=== PATIENT | female | born 1955 | race Caucasian/White ===

== ENCOUNTER 2021-03-01 22:03 | Inpatient (IN) | payer MEDICARE ==
[2021-03-01] MEDS ORDERED: SODIUM CHLORIDE 0.9% 500 ML 500 ML IV STA (22:25)
--- NOTE | 2021-03-01 22:28 | ED ---
Neuro HPI - General Chief Complaint: Neuro Symptoms/Deficit Stated Complaint: L sided weakness Time Seen by Provider: 03/01/21 22:08 Source: patient, EMS Mode of arrival: EMS Limitations: no limitations - History of Present Illness Is the patient presenting with stroke symptoms?: Yes Last Known Well Date: 02/25/21 Onset/Timin -: days(s) Initial Comments: This patient is 65-year-old woman who presents with complaint that she is feeling weak on her left side going on for approximately 4 days now. The patient states that this is led to her having a number of falls at home. She is not complaining of any injury related to the falls. She has noted also having sinus symptoms including congestion, some nasal discharge and a cough. She has not noted fever or chills. No chest pain or dyspnea. Location: left arm, left leg History of same: No Place: home Severity: moderate Quality: weak Improves With: none Worsens With: none On Anticoagulants: No Context: sudden onset, recent fall Associated Symptoms: cough Treatments Prior to Arrival: none - Related Data Allergies/Adverse Reactions: Allergies Allergy/AdvReac Type Severity Reaction Status Date / Time Sulfa (Sulfonamide Allergy Anaphylaxis Verified 03/01/21 22:16 Antibiotics) Review of Systems ROS Statement: Those systems with pertinent positive or pertinent negative responses have been documented in the HPI. ROS Other: All systems not noted in ROS Statement are negative. Constitutional: Denies: fever, chills ENT: Reports: congestion. Denies: throat pain Respiratory: Reports: cough. Denies: dyspnea, wheezes, hemoptysis Cardiovascular: Denies: chest pain, palpitations, edema Gastrointestinal: Denies: abdominal pain, nausea, vomiting, diarrhea Genitourinary: Denies: dysuria, hematuria Musculoskeletal: Denies: back pain Skin: Denies: rash Neurological: Reports: weakness, abnormal gait. Denies: headache, numbness, paresthesias, confusion General Exam Limitations: no limitations General appearance: alert, in no apparent distress Head exam: Present: atraumatic, normocephalic Eye exam: Present: normal appearance. Absent: scleral icterus, conjunctival injection ENT exam: Present: mucous membranes dry Respiratory exam: Present: normal lung sounds bilaterally. Absent: respiratory distress, wheezes, rales, rhonchi, stridor Cardiovascular Exam: Present: regular rate, normal rhythm, normal heart sounds. Absent: systolic murmur, diastolic murmur, rubs, gallop GI/Abdominal exam: Present: soft. Absent: distended, tenderness, guarding, rebound, rigid, mass Extremities exam: Present: normal inspection, normal capillary refill. Absent: pedal edema, calf tenderness Back exam: Present: normal inspection. Absent: CVA tenderness (R), CVA tenderness (L) Neurological exam: Present: alert, oriented X3, motor sensory deficit. Absent: CN II-XII intact Expanded Patient oriented to: Present: person, place, time Speech: Present: fluid speech Cranial nerves: EOM's Intact: Normal Motor strength exam: RUE: 5, LUE: 4, RLE: 5, LLE: 4 Eye Response: (4) open spontaneously Motor Response: (6) obeys commands Verbal Response: (5) oriented Skin exam: Present: warm, dry, intact, normal color. Absent: rash Stroke MDM - Lab Data Result diagrams: 03/01/21 22:28 03/01/21 22:28 Lab Results 03/01/21 03/01/21 03/01/21 Range/Units 22:28 22:28 22:28 WBC 4.1 (3.8-10.6) k/uL RBC 4.71 (3.80-5.40) m/uL Hgb 13.6 (11.4-16.0) gm/dL Hct 41.1 (34.0-46.0) % MCV 87.1 (80.0-100.0) fL MCH 28.9 (25.0-35.0) pg MCHC 33.2 (31.0-37.0) g/dL RDW 12.6 (11.5-15.5) % Plt Count 114 L (150-450) k/uL MPV 8.6 Neutrophils % 77 % Lymphocytes % 15 % Monocytes % 6 % Eosinophils % 1 % Basophils % 0 % Neutrophils # 3.2 (1.3-7.7) k/uL Lymphocytes # 0.6 L (1.0-4.8) k/uL Monocytes # 0.2 (0-1.0) k/uL Eosinophils # 0.0 (0-0.7) k/uL Basophils # 0.0 (0-0.2) k/uL PT 10.3 (9.0-12.0) sec INR 1.0 (<1.2) APTT 24.5 (22.0-30.0) sec Sodium 132 L (137-145) mmol/L Potassium 3.7 (3.5-5.1) mmol/L Chloride 99 (98-107) mmol/L Carbon Dioxide 23 (22-30) mmol/L Anion Gap 10 mmol/L BUN 29 H (7-17) mg/dL Creatinine 1.11 H (0.52-1.04) mg/dL Est GFR (CKD-EPI)AfAm 61 (>60 ml/min/1.73 sqM) Est GFR (CKD-EPI)NonAf 53 (>60 ml/min/1.73 sqM) Glucose 231 H (74-99) mg/dL Calcium 8.5 (8.4-10.2) mg/dL Total Bilirubin 1.1 (0.2-1.3) mg/dL AST 33 (14-36) U/L ALT 21 (4-34) U/L Alkaline Phosphatase 112 (38-126) U/L Total Protein 7.2 (6.3-8.2) g/dL Albumin 3.9 (3.5-5.0) g/dL - EKG Data -: EKG Interpreted by Nd EKG shows normal: sinus rhythm, axis, intervals (Normal), QRS complexes (Old inferior infarct) Rate: normal (Rate 77 bpm) Interpretation: LVH Past Medical History Past Medical History: Hypertension, Myocardial Infarction ([place]) Additional Past Medical History / Comment(s): 2004 cardiac arrest, 5 [place] with stent placement History of Any Multi-Drug Resistant Organisms: None Reported Past Surgical History: Appendectomy, Tubal Ligation Smoking Status: Never smoker Past Alcohol Use History: None Reported Past Drug Use History: None Reported Course Vital Signs 03/01/21 22:12 Temperature 98.5 F Pulse Rate 80 Respiratory 18 Rate Blood Pressure 117/79 O2 Sat by Pulse 93 L Oximetry Disposition Referrals: Nonstaff,Physician [Primary Care Provider] - 1-2 days
[2021-03-01 22:35] LABS: Basophils % (A) 0 %; Eosinophils % (A) 1 %; HCT 41.1 % (34.0-46.0); HGB 13.6 gm/dL (11.4-16.0); Lymphocytes # (A) 0.6 k/uL (1.0-4.8); Lymphocytes % (A) 15 %; MCH 28.9 pg (25.0-35.0); MCHC 33.2 g/dL (31.0-37.0); MCV 87.1 fL (80.0-100.0); Mean Platelet Volume 8.6; Monocytes # (A) 0.2 k/uL (0-1.0); Monocytes % (A) 6 %; Neutrophils # (A) 3.2 k/uL (1.3-7.7); Neutrophils % (A) 77 %; Platelet Count 114 k/uL (150-450); RBC 4.71 m/uL (3.80-5.40); RDW 12.6 % (11.5-15.5); WBC 4.1 k/uL (3.8-10.6)
[2021-03-01 22:49] LABS: Albumin 3.9 g/dL (3.5-5.0); Calcium 8.5 mg/dL (8.4-10.2); Partial Thromboplastin Time 24.5 sec (22.0-30.0); Potassium 3.7 mmol/L (3.5-5.1); Prothrombin Time 10.3 sec (9.0-12.0); Total Bilirubin 1.1 mg/dL (0.2-1.3); Total Protein 7.2 g/dL (6.3-8.2)
--- NOTE | 2021-03-01 23:08 | XR ---
EXAMINATION TYPE: XR chest 2V DATE OF EXAM: 03/01/2021 COMPARISON: NONE HISTORY: Altered mental status TECHNIQUE: 2 view FINDINGS: Heart and mediastinum appear normal. Lungs are clear of infiltrate. There is no heart failu re. There is minimal pleural thickening at the lung apices. There are chest leads. Bony thorax is int act. IMPRESSION: No active cardiopulmonary disease. Normal heart.
--- NOTE | 2021-03-01 23:17 | CT ---
EXAMINATION TYPE: CT brain wo con for TPA DATE OF EXAM: 03/01/2021 COMPARISON: None HISTORY: left side weakness CT DLP: 1171 mGycm Automated exposure control for dose reduction was used. Images obtained of the brain without contrast. There is some hyperostosis frontalis. Ventricles have normal size. There is no mass effect or midline shift. There is no evidence of intracranial hemorrhage. There is normal aeration of the mastoid sinu ses. There is a subtle 1.5 cm area of hypodensity in the white matter right parietal lobe. IMPRESSION: Focal hypodensity right parietal lobe could relate to lacunar infarct. No hemorrhage.
--- NOTE | 2021-03-01 23:33 | CT ---
EXAMINATION TYPE: CT angio head neck DATE OF EXAM: 03/01/2021 COMPARISON: None HISTORY: left side weakness CT DLP: 633.7 mGycm Automated exposure control for dose reduction was used. CONTRAST: Performed with IV Contrast, patient injected with 65 mL of Isovue 370. Images obtained from the aortic arch to the vertex of the brain with IV contrast. There are Three-D p ostprocessed images. There is normal branching pattern of the great vessels on the aortic arch. There is bilateral arteria l flow in the subclavian arteries. There is arterial flow in the common internal and external carotid arteries bilaterally. There is arterial flow in both vertebral arteries. There is arterial flow in t he vertebrobasilar artery system. There is extensive plaque formation at the carotid artery bifurcati ons. There is estimated 50% stenosis origin of the right internal carotid artery. There is estimated 70% stenosis origin left internal carotid artery with complex plaque. There is arterial flow in the anterior middle and posterior cerebral arteries bilaterally. There is n ormal contrast opacification of the venous sinuses. There is no mass effect. There is no evidence of intracranial aneurysm or neovascularity. There appears to be significant luminal narrowing of the rig ht middle cerebral artery proximal to the bifurcation. There is probably more than 70% stenosis. No s ignificant stenosis seen in the anterior cerebral arteries. There is some subtle hypodensity in the w sara matter right parietal lobe. IMPRESSION: Bilateral plaque formation at the carotid artery bifurcations with approximate 50% stenosis right int ernal carotid artery and 70% stenosis left internal carotid artery. There is some stenosis of the right middle cerebral artery approximate 70%. Hypodensity right parieta l lobe white matter suggestive of infarct.
[2021-03-01] MEDS ORDERED: INSULIN NPH 300 UNIT/3 ML VIAL SQ STA (23:47)
[2021-03-01] MEDS ORDERED: ASPIRIN 325 MG TAB PO STA (23:48)
[2021-03-02] MEDS: SODIUM CHLORIDE 0.9% 1,000 ML IV SCH ×3 (00:34→20:15)
[2021-03-02] MEDS: DOCUSATE 100 MG CAP PO SCH ×3 (03:58→18:05)
[2021-03-02 04:03] LABS: Glucose,Whole Blood 159 mg/dL (75-99)
[2021-03-02] MEDS: FAMOTIDINE 20 MG TAB PO SCH ×2 (08:15→20:14)
[2021-03-02] MEDS: ASPIRIN 325 MG TAB PO SCH (08:15)
[2021-03-02] MEDS: HEPARIN SODIUM,PORCINE/PF 5,000 UNIT/0.5 ML SYRINGE SQ SCH ×2 (08:18→20:17)
[2021-03-02 09:45] LABS: LDL Cholesterol,Calculated 50.9 mg/dL (0.0-131.0)
[2021-03-02] MEDS ORDERED: CLOPIDOGREL 75 MG TAB PO STA (10:38)
--- NOTE | 2021-03-02 10:59 | P.CNNES ---
History of Present Illness Consult date: 03/02/21 Requesting physician: Michael Chávez Reason for Consult: Acute ischemic stroke History of Present Illness: Patient is a 65-year-old right-handed female came to the hospital by ambulance yesterday at 11:03 PM for left-sided weakness. patient states that she started having some sinus pressure stating on 02/23/2021. She had intense sinus pressure behind the eyes, cheek. She felt her face was swollen. On 02/27/2021 she woke up with left-sided weakness. She started falling down. She couldn't get out of the bedroom. She missed the bed and fell on the floor. She fell on the toilet, felt weak on the left side. Patient thought that it was just her antihistamine, NyQuil producing the symptoms. She denied any slurred speech, facial droop. Denied any numbness of left side of the body. As the s ymptoms persisted, she decided to come to the ER. As per EMS flow sheet, they came to see the patient because she was not feeling well for the previous couple days. When they arrived, patient was sitting on her bed, alert and oriented 4 with left-sided weakness and facial droop. Patient has extensive cardiac history. Patient denied any chest pain, shortness of breath or dizziness. She was having difficulty with walking, leaning to the left and drifting that way. Patient stood with assistance and sat on the stretcher. Patient has pronounced left-sided weakness. The symptoms have been present since 8 AM earlier in the morning. Patient's vital signs shows blood pressure 126/73, pulse of 81 respirations 16 and saturation 95%, blood glucose 253. Temperature 97.2. Computed tomography scan of the head showed focal hypodensity right parietal lobe could be related to lacunar infarct. No hemorrhage. I reviewed the computed tomography scan personally, and appears somewhat probable chronic in nature. It involves the subcortical right parietal region. CTA of head and neck showed bilateral plaque formation at the carotid bifurcation with approximately 50% stenosis right ICA and 70% stenosis left ICA. There is some stenosis of the right middle cerebral artery approximately 70%. Hypodensity right parietal lobe white matter suggestive of infarct. EKG shows normal sinus rhythm, left ventricular hypertrophy with repolarization abnormality. Chest x-ray showed no active cardiopulmonary disease. Normal heart. Blood test shows normal CBC PT/PTT, sodium 132 potassium 3.7, BUN is 29, creatinine 1.11. Hepatic panel is normal, troponin negative. Patient currently takes Lipitor 80 mg, Zetia 10 mg, losartan 50 mg, metoprolol 100 mg.patient states that she takes aspirin 81 mg daily, which she is still taking it. She also has been taking Plavix 75 mg daily, but she ran out of it 2 weeks ago, as she has not got her refill of Plavix yet. Patient states that she has history of hypertension, [place] in 2003 after which she started taking all these medications. She has smoked 1 pack per day for 20 years, quit 2003. Denies diabetes. Patient states that she is not vaccinated for coronavirus. She is not intending to get vaccinated. She does not believe in it. I discussed with her to get tested for Covid-19 (given her recent sinus congestion and sinus pressures), but she completely declined, stating that coronavirus is everywhere, even the water. Review of Systems as mentioned in detail in HPI. All other 14 point of review of systems reviewed and unremarkable. Denies any chest pain, denies any double vision, loss of vision. No fever or chills. Past Medical History Past Medical History: Hypertension, Myocardial Infarction ([place]) Additional Past Medical History / Comment(s): 2003 cardiac arrest, 5 [place] with stent placement History of Any Multi-Drug Resistant Organisms: None Reported Past Surgical History: Appendectomy, Tubal Ligation Smoking Status: Never smoker Past Alcohol Use History: None Reported Past Drug Use History: None Reported Medications and Allergies Home Medications Medication Instructions Recorded Confirmed Type Amoxic-Pot Clav 875-125Mg 1 tab PO Q12HR 03/01/21 03/01/21 History [Augmentin 875-125] Atorvastatin [Lipitor] 80 mg PO HS 03/01/21 03/01/21 History Ezetimibe [Zetia] 10 mg PO HS 03/01/21 03/01/21 History Losartan Potassium 50 mg PO HS 03/01/21 03/01/21 History Metoprolol Succinate (ER) [Toprol 100 mg PO HS 03/01/21 03/01/21 History Xl] diphenhydrAMINE [Benadryl] 25 mg PO HS 03/01/21 03/01/21 History Allergies Allergy/AdvReac Type Severity Reaction Status Date / Time Sulfa (Sulfonamide Allergy Anaphylaxis Verified 03/02/21 16:07 Antibiotics) Physical Examination - Vital Signs Vital Signs: Vital Signs Temp Pulse Resp BP Pulse Ox 03/02/21 06:51 80 18 131/75 94 L 03/01/21 22:12 98.5 F 80 18 117/79 93 L Intake and Output 03/01/21 03/02/21 03/02/21 22:59 06:59 14:59 Other: Weight 113.398 kg Patient is an elderly female, in no acute distress. Patient is alert awake oriented to time place and person. Speech is mildly hoarse, but no aphasia or dysarthria. Attention, concentration and fund of knowledge is adequate. On cranial examination, pupils are round and reacting to light, visual goldberg are full on confrontation, extraocular muscles are intact with no nystagmus. Patient has slight left facial weakness, central type. Her tongue protrudes to the midline. Palatal elevation and sensation normal, hearing and shoulder shrug normal, facial sensation normal. Shoulder shrug normal. On muscle strength testing, there is left pronator drift, but does not hit the bed. The muscle strength is (RIGHT/LEFT), deltoid 5/3+, biceps 5/5-4+, triceps 5/4+, rn hematology 5/5-. In the lower limbs, her both hip flexures are weak, but left is weaker. Right has some resistance against gravity but the left falls right away. Ankles are normal bilaterally. Deep tendon reflexes are overall diminished, but plantar is downgoing on the right, up on the left side. Sensory to touch is equal with no neglect. Cerebellar function showed ataxia for [id number], and [id number] testing only on the left side. Tone is slightly decreased on the left side and bulk of muscles normal. Gait deferred. On general examination, there is no carotid bruit or murmur, S1-S2 audible. Abdomen is soft nontender, normal bowel sounds, no organomegaly. Chest is c lear. Peripheral pulses are present. No edema. Results - Laboratory Findings CBC and BMP: 03/04/21 08:05 03/04/21 08:05 Abnormal Lab Findings: Abnormal Labs 03/01/21 03/01/21 03/02/21 22:28 22:28 03:54 Plt Count 114 L Lymphocytes # 0.6 L Sodium 132 L BUN 29 H Creatinine 1.11 H Glucose 231 H POC Glucose (mg/dL) 159 H Assessment and Plan Assessment: * Acute ischemic stroke with left hemiparesis. Patient's symptoms have been present for 48 hours prior to arrival. Patient was not a candidate for TPA. Her NIH stroke scale is 5 ( MILD LEFT HEMIPARESIS AND LEFT SIDED ATAXIA) * bilateral carotid artery disease, 70% of the left (asymptomatic side), 50% on the right (symptomatic side). * Hypertension * Hyperlipidemia * Coronary artery disease * X tobacco use * Obesity Plan: * Patient used to be on dual antiplatelet medication since her [place] in 2003. She has ran out of Plavix 2 weeks ago. Patient will be resumed on dual antiplatelet medications. * We will check MRI of the brain to evaluate for an acute stroke * 2-D echo with bubble study to rule out PFO * Lipid panel, hemoglobin A1c, continue statins * Telemetry monitoring * Vascular surgery on board for left ICA stenosis. * PT OT, evaluate gait. * Dr Frances will cover neurology service from tomorrow over the weekend. * Thank you for the consult. Addendum: 2-D echo revealed normal left frontal grid size. Mild concentric LVH. EF is be tween 55-60%. Bubble study was negative for any shunt. Interatrial and interventricular septum intact. Trace MR. Brain MRI revealed evolving acute right-sided infarct centered posterior deep right frontal lobe. Small vessel ischemic disease.
--- NOTE | 2021-03-02 11:15 | P.GSCN ---
History of Present Illness Consult date: 03/02/21 Reason for Consult: Bilateral ICA stenosis, cerebral artery stenosis Requesting physician: Rafat E Sheet History of present illness: This is a 65-year-old female who lives alone who presented to the emergency department, after having weakness to her bilateral upper and lower extremity with multiple falls. Patient states symptoms started on Friday however she was being stubborn and did not want to come in for further evaluation. Patient states her left upper extremity has been weak as well as her lower extremity and she was in the restroom and was not able to get out. She does have a history of coronary artery disease status post 5 MIs beginning in 2003 with stent placement and hypertension. She has a bill cutter that she follows that of [facility] which she has not seen in one year. Patient normally takes aspirin and Plavix however ran out of her Plavix 2 weeks ago and has not taken any. She denies any previous history of strokes. She is currently denying any difficulty with speaking, swallowing, visual changes, headache, blurred vision. She continues to have upper and lower extremity weakness on the left. She is right hand dominant but states she is ambidextrous. She denies currently smoking but is a former smoker and quit in 2003 when she had her first heart attack. CTA of head and neck shows bilateral plaque formation at the carotid artery bifurcation with approximate 50% stenosis right internal carotid artery and 70% stenosis of the left internal carotid artery. There is some stenosis of the right middle cerebral artery approximate 70%. Hypodensity right parietal lobe white matter suggestive of infarct. Brain CT shows focal hypodensity of right parietal lobe could relate to lacunar infarct. No hemorrhage Review of Systems A 14 point review systems was completed all pertinent positives and negatives as stated in the HPI. Past Medical History Past Medical History: Hypertension, Myocardial Infarction ([place]) Additional Past Medical History / Comment(s): 2003 cardiac arrest, 5 [place] with stent placement History of Any Multi-Drug Resistant Organisms: None Reported Past Surgical History: Appendectomy, Tubal Ligation Smoking Status: Never smoker Past Alcohol Use History: None Reported Past Drug Use History: None Reported Medications and Allergies Home Medications Medication Instructions Recorded Confirmed Type Amoxic-Pot Clav 875-125Mg 1 tab PO Q12HR 03/01/21 03/01/21 History [Augmentin 875-125] Atorvastatin [Lipitor] 80 mg PO HS 03/01/21 03/01/21 History Ezetimibe [Zetia] 10 mg PO HS 03/01/21 03/01/21 History Losartan Potassium 50 mg PO HS 03/01/21 03/01/21 History Metoprolol Succinate (ER) [Toprol 100 mg PO HS 03/01/21 03/01/21 History Xl] diphenhydrAMINE [Benadryl] 25 mg PO HS 03/01/21 03/01/21 History Allergies Allergy/AdvReac Type Severity Reaction Status Date / Time Sulfa (Sulfonamide Allergy Anaphylaxis Verified 03/01/21 22:52 Antibiotics) Surgical - Exam Vital Signs Temp Pulse Resp BP Pulse Ox 98.5 F 80 18 117/79 93 L 03/01/21 22:12 03/01/21 22:12 03/01/21 22:12 03/01/21 22:12 03/01/21 22:12 General appearance: The patient is alert, oriented, appears in no acute distress. HET: Head is normocephalic and atraumatic. Pupils are equal and reactive. Neck: Supple without lymphadenopathy. Trachea midline. No audible bruit. Heart: S1 S2. Regular rate and rhythm. Lungs: Clear to auscultation. No crackles or wheezes are heard. Abdomen: Soft, nontender, nondistended. Extremities: Normal skin color and turgor. No cyanosis, rash, ulceration, clubbing, or edema. Radial and pedal pulses are 2/4 bilaterally. Neurological: Facial asymmetry, left facial droop. Tongue protrudes midline. Speech is fluent, patient answers questions appropriately and is able to follow commands. Left upper extremity and lower extremity weakness. Results - Labs 03/01/21 22:28 03/01/21 22:28 Abnormal Lab Results - Last 24 Hours (Table) 03/01/21 03/01/21 03/02/21 Range/Units 22:28 22:28 03:54 Plt Count 114 L (150-450) k/uL Lymphocytes # 0.6 L (1.0-4.8) k/uL Sodium 132 L (137-145) mmol/L BUN 29 H (7-17) mg/dL Creatinine 1.11 H (0.52-1.04) mg/dL Glucose 231 H (74-99) mg/dL POC Glucose (mg/dL) 159 H (75-99) mg/dL Triglycerides (0.00-149.00) mg/dL VLDL Cholesterol, Calc (5.00-40.00) mg/dL HDL Cholesterol (40.00-60.00) mg/dL 03/02/21 Range/Units 05:34 Plt Count (150-450) k/uL Lymphocytes # (1.0-4.8) k/uL Sodium (137-145) mmol/L BUN (7-17) mg/dL Creatinine (0.52-1.04) mg/dL Glucose (74-99) mg/dL POC Glucose (mg/dL) (75-99) mg/dL Triglycerides 220.00 H (0.00-149.00) mg/dL VLDL Cholesterol, Calc 44.00 H (5.00-40.00) mg/dL HDL Cholesterol 21.10 L (40.00-60.00) mg/dL Diabetes panel 03/01/21 03/02/21 Range/Units 22:28 05:34 Sodium 132 L (137-145) mmol/L Potassium 3.7 (3.5-5.1) mmol/L Chloride 99 (98-107) mmol/L Carbon Dioxide 23 (22-30) mmol/L BUN 29 H (7-17) mg/dL Creatinine 1.11 H (0.52-1.04) mg/dL Glucose 231 H (74-99) mg/dL Calcium 8.5 (8.4-10.2) mg/dL AST 33 (14-36) U/L ALT 21 (4-34) U/L Alkaline Phosphatase 112 (38-126) U/L Total Protein 7.2 (6.3-8.2) g/dL Albumin 3.9 (3.5-5.0) g/dL Triglycerides 220.00 H (0.00-149.00) mg/dL HDL Cholesterol 21.10 L (40.00-60.00) mg/dL Calcium panel 03/01/21 Range/Units 22:28 Calcium 8.5 (8.4-10.2) mg/dL Albumin 3.9 (3.5-5.0) g/dL Pituitary panel 03/01/21 Range/Units 22:28 Sodium 132 L (137-145) mmol/L Potassium 3.7 (3.5-5.1) mmol/L Chloride 99 (98-107) mmol/L Carbon Dioxide 23 (22-30) mmol/L BUN 29 H (7-17) mg/dL Creatinine 1.11 H (0.52-1.04) mg/dL Glucose 231 H (74-99) mg/dL Calcium 8.5 (8.4-10.2) mg/dL Adrenal panel 03/01/21 Range/Units 22:28 Sodium 132 L (137-145) mmol/L Potassium 3.7 (3.5-5.1) mmol/L Chloride 99 (98-107) mmol/L Carbon Dioxide 23 (22-30) mmol/L BUN 29 H (7-17) mg/dL Creatinine 1.11 H (0.52-1.04) mg/dL Glucose 231 H (74-99) mg/dL Calcium 8.5 (8.4-10.2) mg/dL Total Bilirubin 1.1 (0.2-1.3) mg/dL AST 33 (14-36) U/L ALT 21 (4-34) U/L Alkaline Phosphatase 112 (38-126) U/L Total Protein 7.2 (6.3-8.2) g/dL Albumin 3.9 (3.5-5.0) g/dL - Imaging Comments: Imaging reviewed Assessment and Plan Assessment: 1. Left-sided weakness 2. Bilateral internal carotid artery stenosis, 50% on right and 70% on left per CTA 3. Coronary artery disease status post 5 MIs with stenting Plan: 1. Continue ASA, statin 2. Carotid Doppler ordered and reviewed 3. Await further recommendations from neurology 4. Consider MRA of the neck if doing MRI, otherwise can be done outpatient 5. Further recommendations forthcoming per vascular surgeon Thank you for this consultation, and allowing us take part in the plan of care of your patient during his hospital stay. The impression and plan of care has been dictated as directed. Dr. Hernandez I performed a history and examination of this patient, discussed the same with the dictator. I agree with the dictator's note ,documented as a scribe. Any additional findings or plans will be noted.
--- NOTE | 2021-03-02 11:21 | P.HPIM ---
History of Present Illness This is a pleasant 65 years old female with past medical history of hypertension, coronary artery disease status post stents 5, history of cardiac arrest. She does not follow up with PCP Presents because of left-sided weakness and facial droop. Patient states last week she got sinus infection and she was having some headache and use some antibiotics. She was not eating or drinking well for the last week. She was sitting in bed most of the time. Last Friday about 4 days ago she started having weakness in her left side both upper and lower extremities that take her difficult to move around, she fell 4 times last time was yesterday, she could not get up. She denies chest pain or dyspnea or GI or urinary symptoms. No fever. Except for diarrhea about 3 times per day. Also patient was not eating or drinking well last few days She denies smoking, alcohol or illicit drugs. Vitas looks stable, patient's saturation of oxygen is 94% on room air. Labs reviewed showing unremarkable CBC except for mild thrombocytopenia at 114 and mild lymphopenia and 0.6. Sodium is 132, BUN is 29 and creatinine 1.1. Unknown baseline Glucose is elevated at 231 Liver enzymes not elevated. Troponin are negative 3 with 0.0-1, 0.017, 0.017. EKG showing normal sinus rhythm at [address]-T changes, evidence of LVH. QTC is 493. Chest x-ray: No acute process CT of the brain: No acute process, no hemorrhage, CTA of the head and neck showing bilateral plaque formation of the carotid artery bifurcation approximately 50% stenosis right internal carotid artery and 70% stenosis left internal carotid artery. There is some stenosis of the right middle cerebral artery approximately 70%. Hyperdensity right parietal lobe white matter suggestive of infarct Review of Systems CONSTITUTIONAL: No fever, no malaise, no fatigue. HEENT: No recent visual problems or hearing problems. Denied any sore throat. CARDIOVASCULAR: No orthopnea, PND, no palpitations, no syncope. PULMONARY: No shortness of breath, no cough, no hemoptysis. GASTROINTESTINAL: No diarrhea, no nausea, no vomiting, no abdominal pain. Normoactive bowel sounds. NEUROLOGICAL: No headaches, no weakness, no numbness. HEMATOLOGICAL: Denies any bleeding or petechiae. GENITOURINARY: Denies any burning micturition, frequency, or urgency. MUSCULOSKELETAL/RHEUMATOLOGICAL: Denies any joint pain, swelling, or any muscle pain. ENDOCRINE: Denies any polyuria or polydipsia. Past Medical History Past Medical History: Hypertension, Myocardial Infarction ([place]) Additional Past Medical History / Comment(s): 2004 cardiac arrest, 5 [place] with stent placement History of Any Multi-Drug Resistant Organisms: None Reported Past Surgical History: Appendectomy, Tubal Ligation Smoking Status: Never smoker Past Alcohol Use History: None Reported Past Drug Use History: None Reported Medications and Allergies Home Medications Medication Instructions Recorded Confirmed Type Amoxic-Pot Clav 875-125Mg 1 tab PO Q12HR 03/01/21 03/01/21 History [Augmentin 875-125] Atorvastatin [Lipitor] 80 mg PO HS 03/01/21 03/01/21 History Ezetimibe [Zetia] 10 mg PO HS 03/01/21 03/01/21 History Losartan Potassium 50 mg PO HS 03/01/21 03/01/21 History Metoprolol Succinate (ER) [Toprol 100 mg PO HS 03/01/21 03/01/21 History Xl] diphenhydrAMINE [Benadryl] 25 mg PO HS 03/01/21 03/01/21 History Allergies Allergy/AdvReac Type Severity Reaction Status Date / Time Sulfa (Sulfonamide Allergy Anaphylaxis Verified 03/01/21 22:52 Antibiotics) Physical Exam Vitals: Vital Signs Temp Pulse Resp BP Pulse Ox 03/02/21 06:51 80 18 131/75 94 L 03/01/21 22:12 98.5 F 80 18 117/79 93 L Intake and Output 03/01/21 03/02/21 03/02/21 22:59 06:59 14:59 Other: Weight 113.398 kg GENERAL: The patient is alert and oriented x3, not in any acute distress. Well developed, well nourished. HEENT: Pupils are round and equally reacting to light. EOMI. No scleral icterus. No conjunctival pallor. Normocephalic, atraumatic. No pharyngeal erythema. No thyromegaly. CARDIOVASCULAR: S1 and S2 present. No murmurs, rubs, or gallops. PULMONARY: Chest is clear to auscultation, no wheezing or crackles. ABDOMEN: Soft, nontender, nondistended, normoactive bowel sounds. No palpable organomegaly. MUSCULOSKELETAL: No joint swelling or deformity. EXTREMITIES: No cyanosis, clubbing, or pedal edema. NEUROLOGICAL: Gross neurological examination did not reveal any focal deficits. SKIN: No rashes. No petechiae Results CBC & Chem 7: 03/01/21 22:28 03/01/21 22:28 Labs: Abnormal Lab Results - Last 24 Hours (Table) 03/01/21 03/01/21 03/02/21 Range/Units 22:28 22:28 03:54 Plt Count 114 L (150-450) k/uL Lymphocytes # 0.6 L (1.0-4.8) k/uL Sodium 132 L (137-145) mmol/L BUN 29 H (7-17) mg/dL Creatinine 1.11 H (0.52-1.04) mg/dL Glucose 231 H (74-99) mg/dL POC Glucose (mg/dL) 159 H (75-99) mg/dL Assessment and Plan Assessment: Acute stroke with left hemiparesis and facial droop, secondary to right parietal lobe acute to subacute infarct Bilateral ICA stenosis, more on the left side 70% compared to the right side 50% Hyperglycemia, check for diabetes mellitus Dehydration with mild hypovolemic hyponatremia and elevated creatinine Hypertension History of coronary artery disease status post stents 5. Obesity with BMI of 34.9 Plan: This is a pleasant 65 years old female who presents with acute stroke Continue with aspirin and Plavix Check echocardiogram and consider MRI of the brain per neurologist Neurology consult Check A1c, B12, TSH Continue gentle hydration consults vascular surgery service for carotid artery stenosis Labs and medication were reviewed.. Continue same treatment. Continue with symptomatic treatment. Resume home medication. Monitor lytes and vitals. DVT and GI prophylaxis. Further recommendations depends on the clinical course of the patient DVT prophylaxis: Subcutaneous heparin GI Prophylaxis: Pepcid PT/OT: Pending Prognosis is guarded
--- NOTE | 2021-03-02 11:49 | US ---
EXAMINATION TYPE: US carotid duplex BILAT DATE OF EXAM: 03/02/2021 COMPARISON: CLINICAL HISTORY: CVA. Left side weakness. No previous tia or stroke per patient. HTN. Diabetic. No blurred vision. EXAM MEASUREMENTS: RIGHT: Peak Systolic Velocity (PSV) cm/sec ----- Right CCA: 94.0 ----- Right ICA: 94.3 ----- Right ECA: 145.7 ICA/CCA ratio: 1.0 RIGHT: End Diastole cm/sec ----- Right CCA: 18.9 ----- Right ICA: 20.6 ----- Right ECA: 17.5 LEFT: Peak Systolic Velocity (PSV) cm/sec ----- Left CCA: 95.3 ----- Left ICA: 154.9 ----- Left ECA: 263.8 ICA/CCA ratio: 1.6 LEFT: End Diastole cm/sec ----- Left CCA: 28.0 ----- Left ICA: 39.7 ----- Left ECA: 14.9 VERTEBRALS (direction of flow): Right Vertebral: Antegrade Left Vertebral: Antegrade Rhythm: Normal Plaque visualized at bulbs and bifurcations. Bilateral elevated ECA velocities. Wall thickening. IMPRESSION: 1. Bilateral atherosclerotic plaque with no significant hemodynamic stenosis of the internal carotid arteries bilaterally. 2. Bilateral elevated ECA velocities associated with stenosis. Criteria for Assigning % of Stenosis / Diameter reduction (Estimation based on the indirect measurements of the internal carotid artery velocities (ICA PSV). 1. Normal (no stenosis)=ICA PSV < 125 cm/s: ratio < 2.0: ICA EDV<40 cm/s. 2. Less than 50% stenosis=ICA PSV < 125 cm/s: ratio < 2.0: ICA EDV<40 cm/s. 3. 50 to 69% stenosis=ICA PSV of 125 to 230 cm/s: ration 2.0 ? 4.0: ICA EDV 40-100 cm/s. 4. Greater than 70% stenosis to near occlusion= ICA PSV > 230 cm/s: ratio > 4.0: ICA EDV > 100 cm/s. 5. Near occlusion= ICA PSV velocities may be low or undetectable: variable ratio and ICA EDV. 6. Total occlusion=unable to detect flow.
--- NOTE | 2021-03-02 15:05 | MR ---
EXAMINATION TYPE: MR brain wo con DATE OF EXAM: 03/02/2021 COMPARISON: CT brain from yesterday. HISTORY: Acute onset neuro deficit on admission one day earlier TECHNIQUE: Multiplanar, multisequence imaging of the brain and brainstem is performed without IV cont rast. FINDINGS: Diffusion weighted images demonstrate area of increased signal on diffusion-weighted imaging with dim inished signal on ADC mapping involving the deep posterior right frontal lobe at the level of coronar y radiata extending superiorly just before the deep aspect of the primary central sulcus measuring 1. 6 x 1.2 cm image 176 with slight superior and slightly more prominent inferior deeper extension. Ther e is T2 hyperintensity at this level. Mild ventricular and sulcal prominence. Scattered small T2 hyperintense lesions throughout the superf icial deep and periventricular white matter. Approximately 50-60 scattered lesions. Midline structures demonstrate normal morphology. The craniocervical junction appears within normal limits. Normal vascular flow voids are present. Moderate mucosal thickening ethmoid sinuses bilateral ly. Mild mucosal thickening inferior bilateral frontal sinuses. Globes are intact bilaterally. IMPRESSION: 1. Evolving acute right sided infarct centered posterior deep right frontal lobe as detailed above. 2. Background mild diffuse cerebral atrophy and moderate chronic small vessel ischemic change. A Yellow level critical message alert has been initiated for Cyril Jama MD via the [facility] Critical Results System on 03/02/2021 3:02 PM. This message alert has been sent to Cyril Jama MD via the preferences provided by the clinician for the receipt of Radiology Critical Findings. Message ID [id number].
[2021-03-02 15:51] LABS: Glucose,Whole Blood 215 mg/dL (75-99)
[2021-03-02 19:57] LABS: Glucose,Whole Blood 221 mg/dL (75-99)
[2021-03-02 20:08] LABS: Appearance,Urine Clear (Clear); Bilirubin,Urine Negative (Negative); Blood,Urine Negative (Negative); Color,Urine Yellow; Glucose,Urine (UA) 2+ (Negative); Ketones,Urine Negative (Negative); Leukocyte Esterase,Urine Negative (Negative); Nitrite,Urine Negative (Negative); PH, Urine 5.5 (5.0-8.0); Protein,Urine Trace (Negative); Specific Gravity,Urine 1.022 (1.001-1.035); Urobilinogen,Urine <2.0 mg/dL (<2.0)
[2021-03-02] MEDS: LOSARTAN 50 MG TAB PO SCH (20:14)
[2021-03-02] MEDS: ATORVASTATIN 80 MG TAB PO SCH (20:14)
[2021-03-02] MEDS: METOPROLOL SUCCINATE (ER) 100 MG TAB.ER.24H PO SCH (20:14)
[2021-03-02] MEDS: EZETIMIBE 10 MG TAB PO SCH (20:23)
[2021-03-02] MEDS ORDERED: INSULIN DETEMIR (LEVEMIR) 100 UNIT/ML SYR SQ SCH (23:15)
[2021-03-03] MEDS: DOCUSATE 100 MG CAP PO SCH ×2 (00:03→09:33)
[2021-03-03] MEDS: SODIUM CHLORIDE 0.9% 1,000 ML IV SCH ×2 (06:09→14:51)
[2021-03-03] MEDS: INSULIN ASPART (NovoLOG) 100 UNIT/ML VIAL SQ SCH ×3 (06:13→17:22)
[2021-03-03 06:39] LABS: Glucose,Whole Blood 193 mg/dL (75-99)
[2021-03-03 09:28] LABS: Calcium 8.3 mg/dL (8.4-10.2); Magnesium 1.8 mg/dL (1.6-2.3); Potassium 3.5 mmol/L (3.5-5.1)
[2021-03-03] MEDS: FAMOTIDINE 20 MG TAB PO SCH ×2 (09:32→19:48)
[2021-03-03] MEDS: ASPIRIN 325 MG TAB PO SCH (09:32)
[2021-03-03] MEDS: HEPARIN SODIUM,PORCINE/PF 5,000 UNIT/0.5 ML SYRINGE SQ SCH ×2 (09:32→19:48)
--- NOTE | 2021-03-03 10:04 | P.PN ---
Subjective Progress Note Date: 03/03/21 Principal diagnosis: Carotid stenosis, CVA Patient seen and examined. Doing well and was working with the physical therapist. She still has left upper extremity weakness. Objective - Vital Signs Vital signs: Vital Signs Temp 99.3 F 03/03/21 08:00 Pulse 75 03/03/21 08:00 Resp 20 03/03/21 08:00 BP 114/74 03/03/21 08:00 Pulse Ox 93 L 03/03/21 08:00 Intake & Output 03/02/21 03/03/21 03/03/21 18:59 06:59 18:59 Intake Total 485 240 Output Total 75 Balance 485 165 Intake: Oral 485 240 Output: Urine 75 Other: Voiding Method Toilet Toilet Diaper Diaper Incontinent Incontinent # Voids 1 0 # Bowel Movements 2 1 - Exam facial asymmetry. Tongue midline, no speech issues. Left upper and lower extremity weakness. - Constitutional General appearance: Present: average body habitus - EENT Eyes: Present: PERRLA - Labs CBC & Chem 7: 03/01/21 22:28 03/03/21 08:26 Labs: Abnormal Lab Results - Last 24 Hours (Table) 03/01/21 03/02/21 03/02/21 Range/Units 22:28 15:49 19:46 Sodium (137-145) mmol/L Glucose (74-99) mg/dL POC Glucose (mg/dL) 215 H 221 H (75-99) mg/dL Hemoglobin A1c 10.6 H (0.0-6.0) % Calcium (8.4-10.2) mg/dL Urine Protein (Negative) Urine Glucose (UA) (Negative) 03/02/21 03/03/21 03/03/21 Range/Units 19:56 05:56 08:26 Sodium 135 L (137-145) mmol/L Glucose 206 H (74-99) mg/dL POC Glucose (mg/dL) 193 H (75-99) mg/dL Hemoglobin A1c (0.0-6.0) % Calcium 8.3 L (8.4-10.2) mg/dL Urine Protein Trace H (Negative) Urine Glucose (UA) 2+ H (Negative) Assessment and Plan Assessment: 1. Left-sided weakness 2. Bilateral internal carotid artery stenosis, 50% on right and 70% on left per CTA 3. Coronary artery disease status post 5 MIs with stenting Plan: 1. Continue ASA, statin 2. CTA neck and carotid doppler demonstrate <50%. If the stroke is due to carotid disease then patient will need an outpatient catheter directed angiogram as outpatient.
[2021-03-03] MEDS: LOPERAMIDE 2 MG CAP PO PRN ×2 (10:57→23:07)
[2021-03-03 12:00] LABS: Glucose,Whole Blood 220 mg/dL (75-99)
[2021-03-03 12:52] VITALS: BMI 34.8
--- NOTE | 2021-03-03 12:52 | ECHOF ---
Referral Reason: MEASUREMENTS -------- HEIGHT: 180.3 cm WEIGHT: 113.4 kg BP: IVSd: 1.3 cm (0.6 - 1.1) LVIDd: 4.3 cm (3.9 - 5.3) LVPWd: 1.4 cm (0.6 - 1.1) EDV(Teich): 81 ml IVSs: 1.5 cm LVIDs: 1.8 cm LVPWs: 1.8 cm %IVS Thck: 9 % ESV(Teich): 10 ml EF(Teich): 87 % %FS: 57 % SV(Teich): 71 ml Ao Diam: 2.9 cm (2.0 - 3.7) LA Diam: 1.9 cm (2.7 - 3.8) AV Cusp: 1.5 cm (1.5 - 2.6) EPSS: 3.1 cm MV E Baldo: 0.97 m/s MV DecT: 175 ms MV Dec [place]: 5.5 m/s MV A Baldo: 0.96 m/s MV E/A Ratio: 1.01 MV PHT: 51 ms MR Vmax: 1.82 m/s MR maxP.23 mmHg AV Vmax: 1.54 m/s AV maxP.52 mmHg TR Vmax: 1.46 m/s TR maxP.49 mmHg RAP: 5.00 mmHg RVSP: 13.49 mmHg MV EF SLOPE: 115.05 mm/s (70 - 150) MV EXCURSION: 17.01 mm (> 18.000) FINDINGS -------- This was a technically adequate study. The left ventricular size is normal. There is mild concentric left ventricular hypertrophy. Overa ll left ventricular systolic function is normal with, an EF between 55 - 60 %. The right ventricle is normal in size. The left atrial size is normal. The right atrial size is normal. Contrast study was performed with 2 iv injections of 8 ccs of agitated normal saline, at rest, and wi th cough. Interatrial and interventricular septum intact. The aortic valve is trileaflet and appears structurally normal. The mitral valve is normal. There is trace mitral regurgitation. The tricuspid valve appears structurally normal. Trace tricuspid regurgitation present. Right radha tricular systolic pressure is normal at < 35 mmHg. There is no pulmonic regurgitation present. The aortic root size is normal. IVC Not well visulized. There is no pericardial effusion. CONCLUSIONS -------- 1. The left ventricular size is normal. 2. There is mild concentric left ventricular hypertrophy. 3. Overall left ventricular systolic function is normal with, an EF between 55 - 60 %. 4. Contrast study was performed with 2 iv injections of 8 ccs of agitated normal saline, at rest, and with cough. 5. There is trace mitral regurgitation. 6. Trace tricuspid regurgitation present. 7. There is no pericardial effusion. PASSENGER SERVICE SUPERVISOR: Maggi Wheeler RDCS
--- NOTE | 2021-03-03 13:58 | P.PN ---
Subjective This is a pleasant 65 years old female with past medical history of hypertension, coronary artery disease status post stents 5, history of cardiac arrest. She does not follow up with PCP Presents because of left-sided weakness and facial droop. Patient states last week she got sinus infection and she was having some headache and use some antib iotics. She was not eating or drinking well for the last week. She was sitting in bed most of the time. Last Friday about 4 days ago she started having weakness in her left side both upper and lower extremities that take her difficult to move around, she fell 4 times last time was yesterday, she could not get up. She denies chest pain or dyspnea or GI or urinary symptoms. No fever. Except for diarrhea about 3 times per day. Also patient was not eating or drinking well last few days She denies smoking, alcohol or illicit drugs. Vitas looks stable, patient's saturation of oxygen is 94% on room air. Labs reviewed showing unremarkable CBC except for mild thrombocytopenia at 114 and mild lymphopenia and 0.6. Sodium is 132, BUN is 29 and creatinine 1.1. Unknown baseline Glucose is elevated at 231 Liver enzymes not elevated. Troponin are negative 3 with 0.0-1, 0.017, 0.017. EKG showing normal sinus rhythm at [address]-T changes, evidence of LVH. QTC is 493. Chest x-ray: No acute process CT of the brain: No acute process, no hemorrhage, CTA of the head and neck showing bilateral plaque formation of the carotid artery bifurcation approximately 50% stenosis right internal carotid artery and 70% stenosis left internal carotid artery. There is some stenosis of the right middle cerebral artery approximately 70%. Hyperdensity right parietal lobe white matter suggestive of infarct 03/03/2021 Patients with persistent left hemiparesis, not improved not worsened, MRI of the brain showing right frontal infarct. Patient is on aspirin and Plavix at home which is continue with now (patient has 5 cardiac stents before). The dual antiplatelet therapy is Per neurologist team recommendation. Also patient was found to have uncontrolled diabetes with hemoglobin A1c at 10.8%. Patient was started on Levemir 7 units increased to 10 units today and NovoLog 3 units with meals increased to 5 units today. Continue with gentle hydration and/or normal saline 100 down to 75 mL/h. Vascular surgery recommended outpatient follow-up as the stroke site showing stenosis less than 50% on the right symptomatic site Echocardiogram showed ejection fraction of 55-60% Patient had persistent secondary to Colace 3 times a day prescribed in the emergency room, cholecystitis and give her Objective - Vital Signs Vital signs: Vital Signs Temp 98.3 F 03/03/21 11:52 Pulse 76 03/03/21 11:52 Resp 20 03/03/21 11:52 BP 134/73 03/03/21 11:52 Pulse Ox 95 03/03/21 11:52 Intake & Output 03/02/21 03/03/21 03/03/21 18:59 06:59 18:59 Intake Total 485 240 Output Total 75 Balance 485 165 Intake: Oral 485 240 Output: Urine 75 Other: Voiding Method Toilet Toilet Diaper Diaper Incontinent Incontinent # Voids 1 0 # Bowel Movements 2 1 - Exam GENERAL: The patient is alert and oriented x3, not in any acute distress. Well developed, well nourished. HEENT: Pupils are round and equally reacting to light. EOMI. No scleral icterus. No conjunctival pallor. Normocephalic, atraumatic. No pharyngeal erythema. No thyromegaly. CARDIOVASCULAR: S1 and S2 present. No murmurs, rubs, or gallops. PULMONARY: Chest is clear to auscultation, no wheezing or crackles. ABDOMEN: Soft, nontender, nondistended, normoactive bowel sounds. No palpable organomegaly. MUSCULOSKELETAL: No joint swelling or deformity. EXTREMITIES: No cyanosis, clubbing, or pedal edema. -NEUROLOGICAL: Gross cranial nerves are grossly intact. Left sided weakness, and hemiparesis including both left arm and left leg. No facial deviation. Sensation is intact. SKIN: No rashes. No petechiae - Labs CBC & Chem 7: 03/01/21 22:28 03/03/21 08:26 Labs: Abnormal Lab Results - Last 24 Hours (Table) 03/01/21 03/02/21 03/02/21 Range/Units 22:28 15:49 19:46 Sodium (137-145) mmol/L Glucose (74-99) mg/dL POC Glucose (mg/dL) 215 H 221 H (75-99) mg/dL Hemoglobin A1c 10.6 H (0.0-6.0) % Calcium (8.4-10.2) mg/dL Urine Protein (Negative) Urine Glucose (UA) (Negative) 03/02/21 03/03/21 03/03/21 Range/Units 19:56 05:56 08:26 Sodium 135 L (137-145) mmol/L Glucose 206 H (74-99) mg/dL POC Glucose (mg/dL) 193 H (75-99) mg/dL Hemoglobin A1c (0.0-6.0) % Calcium 8.3 L (8.4-10.2) mg/dL Urine Protein Trace H (Negative) Urine Glucose (UA) 2+ H (Negative) 03/03/21 Range/Units 11:59 Sodium (137-145) mmol/L Glucose (74-99) mg/dL POC Glucose (mg/dL) 220 H (75-99) mg/dL Hemoglobin A1c (0.0-6.0) % Calcium (8.4-10.2) mg/dL Urine Protein (Negative) Urine Glucose (UA) (Negative) Assessment and Plan Assessment: Acute stroke with left hemiparesis and facial droop, secondary to right parietal lobe acute to subacute infarct Bilateral ICA stenosis, more on the left side 70% compared to the right side 50% Hyperglycemia, check for diabetes mellitus Dehydration with mild hypovolemic hyponatremia and elevated creatinine Hypertension History of coronary artery disease status post stents 5. Obesity with BMI of 34.9 Plan: This is a pleasant 65 years old female who presents with acute stroke Continue with aspirin and Plavix Check echocardiogram and consider MRI of the brain per neurologist Neurology consult Check B12, TSH Continue gentle hydration consults vascular surgery service for carotid artery stenosis Labs and medication were reviewed.. Continue same treatment. Continue with symptomatic treatment. Resume home medication. Monitor lytes and vitals. DVT and GI prophylaxis. Further recommendations depends on the clinical course of the patient DVT prophylaxis: Subcutaneous heparin GI Prophylaxis: Pepcid PT/OT: Pending Prognosis is guarded
--- NOTE | 2021-03-03 15:00 | P.PN ---
Subjective Progress Note Date: 03/03/21 The patient is a 65-year-old female who is seen in neurologic follow- up on March 03, 2021, via telemedicine. The patient reports that she came into the hospital because of left-sided weakness and falling. She reportedly had been experiencing what she felt was a sinus infection, with a severe headache. A few days later, she began to have weakness of her left arm and leg. She said she was falling. She was unable to get out of the bed. She fell off of the toilet. The patient currently denies headache. Workup in the emergency department revealed CT angiogram with 50% stenosis of the right ICA and 70% stenosis of the left ICA. The patient reportedly has a history of coronary artery disease, status post stenting. She had been taking aspirin 81 mg and Plavix 75 mg, at home. She shar arently ran out of her Plavix. She had not been taking it for the past 2 weeks. In addition, the patient has a history of hypertension. She has been taking metoprolol and losartan. 2-D echocardiogram was done today, results are noted. There is no report regarding the presence of a PFO or ASD. The patient's hemoglobin A1c was found to be markedly elevated. The patient was unaware of having diabetes mellitus. Objective - Vital Signs Vital signs: Vital Signs Temp 98.3 F 03/03/21 11:52 Pulse 76 03/03/21 11:52 Resp 20 03/03/21 11:52 BP 134/73 03/03/21 11:52 Pulse Ox 95 03/03/21 11:52 Intake & Output 03/02/21 03/03/21 03/03/21 18:59 06:59 18:59 Intake Total 485 240 Output Total 75 Balance 485 165 Weight 113.398 kg Intake: Oral 485 240 Output: Urine 75 Other: Voiding Method Toilet Toilet Diaper Diaper Incontinent Incontinent # Voids 1 0 # Bowel Movements 2 1 - Exam Gen.: The patient is reclining in the bed. She is in no acute distress. She is obese. HEENT: Head is atraumatic, normocephalic. Fundus not visualized. There is no scleral icterus. Mucous membranes are moist. Neck: Supple Heart: Regular rate and rhythm Extremities: Without edema Neurological examination Mental status: The patient is awake, alert and oriented 3. Her speech is clear. She has no difficulty answering questions or following commands. Cranial nerves: Pupils are equal at 3 mm and reactive. Visual goldberg are full to confrontation. Extraocular movements are intact. There is no nystagmus. Facial sensation is intact. There is left-sided facial drooping. Hearing is grossly intact. Uvula and palate are midline. Shoulder shrug is diminished on the left. Tongue protrudes to the right of midline. Motor: Left upper extremity strength 2/5. Left lower extremity strength 3/5. Right-sided strength 5/5. Coordination: There is left-sided dysmetria on finger to nose testing. There is slowing of left sided rapid alternating movements. Deep tendon reflexes: 2+/4+ in the left upper and lower extremities. Right upper and lower extremity reflexes are 1+/4+. Sensation: Grossly intact to light touch throughout - Labs CBC & Chem 7: 03/01/21 22:28 03/03/21 08:26 Labs: Abnormal Lab Results - Last 24 Hours (Table) 03/01/21 03/02/21 03/02/21 Range/Units 22:28 15:49 19:46 Sodium (137-145) mmol/L Glucose (74-99) mg/dL POC Glucose (mg/dL) 215 H 221 H (75-99) mg/dL Hemoglobin A1c 10.6 H (0.0-6.0) % Calcium (8.4-10.2) mg/dL Urine Protein (Negative) Urine Glucose (UA) (Negative) 03/02/21 03/03/21 03/03/21 Range/Units 19:56 05:56 08:26 Sodium (137-145) mmol/L Glucose (74-99) mg/dL POC Glucose (mg/dL) 193 H (75-99) mg/dL Hemoglobin A1c 10.9 H (0.0-6.0) % Calcium (8.4-10.2) mg/dL Urine Protein Trace H (Negative) Urine Glucose (UA) 2+ H (Negative) 03/03/21 03/03/21 Range/Units 08:26 11:59 Sodium 135 L (137-145) mmol/L Glucose 206 H (74-99) mg/dL POC Glucose (mg/dL) 220 H (75-99) mg/dL Hemoglobin A1c (0.0-6.0) % Calcium 8.3 L (8.4-10.2) mg/dL Urine Protein (Negative) Urine Glucose (UA) (Negative) Assessment and Plan Assessment: 1. Acute right, frontal infarct 2. Poorly controlled diabetes mellitus-new diagnosis 3. Bilateral internal carotid artery plaquing, left greater than right 4. Hypertension 5. History of coronary artery disease Plan: 1. Dual antiplatelet therapy-aspirin 81 mg and Plavix 75 mg daily 2. High-dose statin 3. Control of diabetes mellitus 4. Reduction of stroke risk factors-weight loss, exercise, heart healthy diet 5. Agree with vascular surgery evaluation 6. Would recommend patient be transferred to acute inpatient rehabilitation unit Time with Patient: Less than 30 (Spent 25 minutes with patient via telemedicine)
[2021-03-03 16:27] LABS: Glucose,Whole Blood 176 mg/dL (75-99)
[2021-03-03] MEDS: CLOPIDOGREL 75 MG TAB PO SCH (17:22)
[2021-03-03] MEDS: LOSARTAN 50 MG TAB PO SCH (19:48)
[2021-03-03] MEDS: EZETIMIBE 10 MG TAB PO SCH (19:48)
[2021-03-03] MEDS: ATORVASTATIN 80 MG TAB PO SCH (19:49)
[2021-03-03] MEDS: METOPROLOL SUCCINATE (ER) 100 MG TAB.ER.24H PO SCH (19:49)
[2021-03-03] MEDS: INSULIN DETEMIR (LEVEMIR) 100 UNIT/ML SYR SQ SCH (20:53)
[2021-03-03 21:40] LABS: Glucose,Whole Blood 179 mg/dL (75-99)
[2021-03-04] MEDS: PIPERACILLIN-TAZOBACTAM 3.375 GM in SODIUM CHLORIDE 0.9% 100 ML IVPB SCH ×3 (01:06→17:30)
[2021-03-04] MEDS: ACETAMINOPHEN TAB 325 MG TAB PO PRN ×3 (01:07→16:59)
--- NOTE | 2021-03-04 01:45 | XR ---
EXAMINATION TYPE: XR chest 1V DATE OF EXAM: 03/04/2021 COMPARISON: 03/01/2021 HISTORY: Fever TECHNIQUE: FINDINGS: There is no heart failure or confluent pneumonic infiltrate. Costophrenic angles are clear. Heart size is normal. There is very slight coarsening of the interstitial markings. There are chest leads. IMPRESSION: The lung markings are slightly increased compared to recent exam and this could be some m inimal interstitial pneumonia. Normal heart.
[2021-03-04 05:38] LABS: Appearance,Urine Turbid (Clear); Bacteria,Urine Rare /hpf; Bilirubin,Urine Negative (Negative); Blood,Urine Negative (Negative); Color,Urine Yellow; Glucose,Urine (UA) Negative (Negative); Ketones,Urine Negative (Negative); Leukocyte Esterase,Urine Negative (Negative); Nitrite,Urine Negative (Negative); PH, Urine 5.5 (5.0-8.0); Protein,Urine Negative (Negative); RBC,Urine <1 /hpf (0-5); Specific Gravity,Urine 1.013 (1.001-1.035); Squamous Epithelial Cell,Urine <1 /hpf (0-4); Uric Acid Crystals,Urine Rare /hpf; Urobilinogen,Urine <2.0 mg/dL (<2.0); WBC,Urine 1 /hpf (0-5)
[2021-03-04 06:42] LABS: Glucose,Whole Blood 167 mg/dL (75-99)
[2021-03-04] MEDS: SODIUM CHLORIDE 0.9% 1,000 ML IV SCH ×2 (06:50→21:52)
[2021-03-04] MEDS: INSULIN ASPART (NovoLOG) 100 UNIT/ML VIAL SQ SCH ×3 (06:50→16:59)
[2021-03-04] MEDS: HEPARIN SODIUM,PORCINE/PF 5,000 UNIT/0.5 ML SYRINGE SQ SCH ×2 (08:19→21:55)
[2021-03-04] MEDS: CLOPIDOGREL 75 MG TAB PO SCH (08:19)
[2021-03-04] MEDS: ASPIRIN 325 MG TAB PO SCH (08:19)
[2021-03-04] MEDS: LOPERAMIDE 2 MG CAP PO PRN (08:19)
[2021-03-04] MEDS: FAMOTIDINE 20 MG TAB PO SCH ×2 (08:19→21:54)
[2021-03-04 08:28] LABS: Basophils % (A) 0 %; Eosinophils % (A) 0 %; Lymphocytes # (A) 0.5 k/uL (1.0-4.8); Lymphocytes % (A) 20 %; MCH 28.6 pg (25.0-35.0); MCHC 32.4 g/dL (31.0-37.0); MCV 88.2 fL (80.0-100.0); Mean Platelet Volume 8.2; Monocytes # (A) 0.1 k/uL (0-1.0); Monocytes % (A) 6 %; Neutrophils # (A) 1.7 k/uL (1.3-7.7); Neutrophils % (A) 71 %; Platelet Count 111 k/uL (150-450); RBC 4.19 m/uL (3.80-5.40); RDW 12.5 % (11.5-15.5); WBC 2.4 k/uL (3.8-10.6)
[2021-03-04 08:51] LABS: Calcium 8.1 mg/dL (8.4-10.2); Potassium 3.7 mmol/L (3.5-5.1)
[2021-03-04 11:47] LABS: Glucose,Whole Blood 199 mg/dL (75-99)
[2021-03-04 16:42] LABS: Glucose,Whole Blood 158 mg/dL (75-99)
--- NOTE | 2021-03-04 19:34 | P.PN ---
Subjective This is a pleasant 65 years old female with past medical history of hypertension, coronary artery disease status post stents 5, history of cardiac arrest. She does not follow up with PCP Presents because of left-sided weakness and facial droop. Patient states last week she got sinus infection and she was having some headache and use some antib iotics. She was not eating or drinking well for the last week. She was sitting in bed most of the time. Last Friday about 4 days ago she started having weakness in her left side both upper and lower extremities that take her difficult to move around, she fell 4 times last time was yesterday, she could not get up. She denies chest pain or dyspnea or GI or urinary symptoms. No fever. Except for diarrhea about 3 times per day. Also patient was not eating or drinking well last few days She denies smoking, alcohol or illicit drugs. Vitas looks stable, patient's saturation of oxygen is 94% on room air. Labs reviewed showing unremarkable CBC except for mild thrombocytopenia at 114 and mild lymphopenia and 0.6. Sodium is 132, BUN is 29 and creatinine 1.1. Unknown baseline Glucose is elevated at 231 Liver enzymes not elevated. Troponin are negative 3 with 0.0-1, 0.017, 0.017. EKG showing normal sinus rhythm at [address]-T changes, evidence of LVH. QTC is 493. Chest x-ray: No acute process CT of the brain: No acute process, no hemorrhage, CTA of the head and neck showing bilateral plaque formation of the carotid artery bifurcation approximately 50% stenosis right internal carotid artery and 70% stenosis left internal carotid artery. There is some stenosis of the right middle cerebral artery approximately 70%. Hyperdensity right parietal lobe white matter suggestive of infarct 03/03/2021 Patients with persistent left hemiparesis, not improved not worsened, MRI of the brain showing right frontal infarct. Patient is on aspirin and Plavix at home which is continue with now (patient has 5 cardiac stents before). The dual antiplatelet therapy is Per neurologist team recommendation. Also patient was found to have uncontrolled diabetes with hemoglobin A1c at 10.8%. Patient was started on Levemir 7 units increased to 10 units today and NovoLog 3 units with meals increased to 5 units today. Continue with gentle hydration and/or normal saline 100 down to 75 mL/h. Vascular surgery recommended outpatient follow-up as the stroke site showing stenosis less than 50% on the right symptomatic site Echocardiogram showed ejection fraction of 55-60% Patient had persistent secondary to Colace 3 times a day prescribed in the emergency room, cholecystitis and give her 03/04/2021 Patient have persistent left hemiparesis, no significant change in her clinical situation, no dyspnea or chest pain while or rest not sure if she has some occasional cough now and then. She stated that her diarrhea is improved after stopping her Colace, also we will hold Imodium to monitor her bowel movements. Yesterday she spiked a fever of 502 and today around 100, Zosyn was started empirically but it was stopped because of poorcalcitonin came back normal at 0.09 and her chest x-ray showing increased lung markings suspicious for early pulmonary interstitial pneumonia. Patient is also has a positive test for Covid because of this we started her on multiple vitamins, CTPA and zinc. Also we will check her inflammatory markers tomorrow. Consult infectious disease for further recommendations. Urine analysis is nonsuspicious of infection Regarding her stroke, recommend dual antiplatelet therapy with aspirin and Plavix per neurologist, vascular surgery evaluated the patient for her right internal carotid artery stenosis about 50% and they recommended outpatient c atheter directed angiogram. Neurologist recommended inpatient rehab. Consult Dr. Smith Glucose controlled on Levemir 10 units and 5 units of NovoLog with meals Patient tolerates diet. Discontinue IV fluids Objective - Vital Signs Vital signs: Vital Signs Temp 101.4 F H 03/04/21 08:00 Pulse 74 03/04/21 08:00 Resp 20 03/04/21 08:00 BP 118/70 03/04/21 08:00 Pulse Ox 96 03/04/21 08:00 Intake & Output 03/03/21 03/04/21 03/04/21 18:59 06:59 18:59 Intake Total 408 970 Output Total 375 200 Balance 33 770 Weight 113.398 kg Intake: Oral 408 970 Output: Urine 375 200 Other: Voiding Method Toilet Toilet Toilet Diaper Diaper Diaper Incontinent Incontinent Incontinent # Voids 850 # Bowel Movements 6 - Exam GENERAL: The patient is alert and oriented x3, not in any acute distress. Well developed, well nourished. HEENT: Pupils are round and equally reacting to light. EOMI. No scleral icterus. No conjunctival pallor. Normocephalic, atraumatic. No pharyngeal erythema. No thyromegaly. CARDIOVASCULAR: S1 and S2 present. No murmurs, rubs, or gallops. PULMONARY: Chest is clear to auscultation, no wheezing or crackles. ABDOMEN: Soft, nontender, nondistended, normoactive bowel sounds. No palpable organomegaly. MUSCULOSKELETAL: No joint swelling or deformity. EXTREMITIES: No cyanosis, clubbing, or pedal edema. -NEUROLOGICAL: Gross cranial nerves are grossly intact. Left sided weakness, and hemiparesis including both left arm and left leg. No facial deviation. Sensation is intact. SKIN: No rashes. No petechiae - Labs CBC & Chem 7: 03/04/21 08:05 03/04/21 08:05 Labs: Abnormal Lab Results - Last 24 Hours (Table) 03/03/21 03/03/21 03/03/21 Range/Units 08:26 11:59 16:26 WBC (3.8-10.6) k/uL Plt Count (150-450) k/uL Lymphocytes # (1.0-4.8) k/uL Sodium (137-145) mmol/L Glucose (74-99) mg/dL POC Glucose (mg/dL) 220 H 176 H (75-99) mg/dL Hemoglobin A1c 10.9 H (0.0-6.0) % Calcium (8.4-10.2) mg/dL Urine Appearance (Clear) Uric Acid Crystals (None) /hpf Urine Bacteria (None) /hpf Coronavirus (PCR) (Not Detectd) 03/03/21 03/04/21 03/04/21 Range/Units 20:40 04:05 04:25 WBC (3.8-10.6) k/uL Plt Count (150-450) k/uL Lymphocytes # (1.0-4.8) k/uL Sodium (137-145) mmol/L Glucose (74-99) mg/dL POC Glucose (mg/dL) 179 H (75-99) mg/dL Hemoglobin A1c (0.0-6.0) % Calcium (8.4-10.2) mg/dL Urine Appearance Turbid H (Clear) Uric Acid Crystals Rare H (None) /hpf Urine Bacteria Rare H (None) /hpf Coronavirus (PCR) Detected A (Not Detectd) 03/04/21 03/04/21 03/04/21 Range/Units 06:32 08:05 08:05 WBC 2.4 L (3.8-10.6) k/uL Plt Count 111 L (150-450) k/uL Lymphocytes # 0.5 L (1.0-4.8) k/uL Sodium 133 L (137-145) mmol/L Glucose 213 H (74-99) mg/dL POC Glucose (mg/dL) 167 H (75-99) mg/dL Hemoglobin A1c (0.0-6.0) % Calcium 8.1 L (8.4-10.2) mg/dL Urine Appearance (Clear) Uric Acid Crystals (None) /hpf Urine Bacteria (None) /hpf Coronavirus (PCR) (Not Detectd) Assessment and Plan Assessment: Acute stroke with left hemiparesis and facial droop, secondary to right parietal lobe acute to subacute infarct Bilateral ICA stenosis, more on the left side 70% compared to the right side 50% (asymptomatic site) Hyperglycemia, check for diabetes mellitus Fever most likely to mild bilateral Covid pneumonia Dehydration with mild hypovolemic hyponatremia and elevated creatinine, improved Hypertension History of coronary artery disease status post stents 5. Obesity with BMI of 34.9 Plan: This is a pleasant 65 years old female who presents with acute stroke Continue with aspirin and Plavix. Consult Dr. Smith for inpatient rehab Vascular surgery recommended outpatient catheter directed angiography of the right internal carotid artery stenosis Neurology consult Start the patient on vitamin C, vitamin D and zinc. Discontinue Zosyn for normal portcalcitonin. Consult infectious disease team Labs and medication were reviewed.. Continue same treatment. Continue with symptomatic treatment. Resume home medication. Monitor lytes and vitals. DVT and GI prophylaxis. Further recommendations depends on the clinical course of the patient DVT prophylaxis: Subcutaneous heparin GI Prophylaxis: Pepcid PT/OT: Pending Prognosis is guarded
[2021-03-04 21:29] LABS: Glucose,Whole Blood 195 mg/dL (75-99)
[2021-03-04] MEDS: METOPROLOL SUCCINATE (ER) 100 MG TAB.ER.24H PO SCH (21:54)
[2021-03-04] MEDS: ATORVASTATIN 80 MG TAB PO SCH (21:54)
[2021-03-04] MEDS: ASCORBIC ACID 500 MG TAB PO SCH (21:54)
[2021-03-04] MEDS: LOSARTAN 50 MG TAB PO SCH (21:54)
[2021-03-04] MEDS: EZETIMIBE 10 MG TAB PO SCH (21:54)
[2021-03-04] MEDS: INSULIN DETEMIR (LEVEMIR) 100 UNIT/ML SYR SQ SCH (21:55)
[2021-03-04] MEDS: CHOLECALCIFEROL 25 MCG (1000 IU) TABLET PO SCH (22:06)
[2021-03-05] MEDS: ACETAMINOPHEN TAB 325 MG TAB PO PRN
--- NOTE | 2021-03-05 06:23 | P.CONS ---
History of Present Illness - Chief Complaint Gait ataxia with left hemiparesthesias - History of Present Illness I had the opportunity to see patient for inpatient rehab consultation with regard to left hemiparesthesias. Patient admitted to [facility] March 01 with weakness of 4 days duration on left side and with falls. Admitted to Dr. weiner. Seen by neurology, Dr. Hernando Boothe and did concur diagnosis stroke. Seen by Dr. Mitchell who reviewed carotid Dopplers and angiograms CTs and notes stenosis 50% on right and 70% on left. Chest x-rays followed for minimal interstitial markings. Brain MRI with evolving right frontal infarct and diffuse cerebral atrophy. Head CT on admission demonstrates right parietal infarct. Has started therapies. PT reports minimal assist to supervision for bed mobility, transfers, gait 10 feet with roller walker. Note standing balance poor. OT prescribed but unable to see patient yet. Speech therapy assessment swallow recommend pured, regular, clean. Previous functional history as elicited from patient: 65-year-old right-handed white female who is single lives in a first-floor apartment alone. Retired. Describes independent own cooking, laundry, driving, sitdown shower and gait without device. Does not own a car. Does not have regular PCP. Denies tobacco or alcohol. Review of Systems Review of systems: ENT: Denies sneezes or discharge. Eyes: Denies discharge or photophobia. Cardiac: Denies chest pain or palpitation. Pulmonary: Denies cough or shortness of breath. Breast: Denies discharge or lumps. Gastrointestinal: Denies nausea, emesis, constipation, diarrhea. Genitourinary: Denies discharge or frequency. Musculoskeletal: Denies muscle or bone aches. Neurologic: Mild left-sided weakness. Endocrine: Denies shakes or sweats. Oncology: Denies cancers. Dermatologic: Denies rash, itching, pruritus. ALLERGY/immunology: Denies sneezes, rashes. Past Medical History Past Medical History: Hypertension, Myocardial Infarction (HI) Additional Past Medical History / Comment(s): 2004 cardiac arrest, 5 HI with stent placement Last Myocardial Infarction Date:: 2014 History of Any Multi-Drug Resistant Organisms: None Reported Past Surgical History: Appendectomy, Tubal Ligation Smoking Status: Never smoker Past Alcohol Use History: None Reported Past Drug Use History: None Reported Medications and Allergies Home Medications Medication Instructions Recorded Confirmed Type Amoxic-Pot Clav 875-125Mg 1 tab PO Q12HR 03/01/21 03/01/21 History [Augmentin 875-125] Atorvastatin [Lipitor] 80 mg PO HS 03/01/21 03/01/21 History Ezetimibe [Zetia] 10 mg PO HS 03/01/21 03/01/21 History Losartan Potassium 50 mg PO HS 03/01/21 03/01/21 History Metoprolol Succinate (ER) [Toprol 100 mg PO HS 03/01/21 03/01/21 History Xl] diphenhydrAMINE [Benadryl] 25 mg PO HS 03/01/21 03/01/21 History Allergies Allergy/AdvReac Type Severity Reaction Status Date / Time Sulfa (Sulfonamide Allergy Anaphylaxis Verified 03/02/21 16:07 Antibiotics) Physical Exam Vitals: Vital Signs Temp Pulse Resp BP Pulse Ox 03/05/21 04:00 100.1 F H 73 20 133/75 93 L 03/05/21 01:00 99.5 F 03/04/21 23:56 101.2 F H 88 18 132/65 95 03/04/21 20:00 98.3 F 80 16 143/75 95 03/04/21 16:41 100.8 F H 69 20 119/71 97 03/04/21 11:46 98.2 F 77 20 108/69 95 03/04/21 08:00 101.4 F H 74 20 118/70 96 Intake and Output 03/04/21 03/04/21 03/05/21 14:59 22:59 06:59 Intake Total 518 118 Output Total 450 200 Balance 68 -82 Intake: Intake, IV Titration 400 Amount Piperacillin-Tazobactam 3 100 .375 gm In Sodium Chloride 0.9% 100 ml @ 25 mls/hr IVPB Q8HR [facility] Rx# :[id number] Sodium Chloride 0.9% 1, 300 000 ml @ 75 mls/hr IV . [id number] [facility] Rx#:[id number] Oral 118 118 Output: Urine 450 200 Other: Voiding Method Toilet Toilet Toilet Diaper Diaper Diaper Incontinent # Voids 3 # Bowel Movements 3 Skin: Good color, texture, turgor. General: Overweight build and comfortable appearance. Head: Normocephalic, atraumatic. Eyes: Symmetric. Pupils equal round. Ears: Symmetric. Hearing within normal limits. Mouth: Clear. Neck: Supple. Carotid without bruit. Cardiac: Regular rate and rhythm. Lungs: Clear anteriorly and posteriorly. Abdomen: Soft active nontender. Extremities: Normal tone. Neurological: Mental status: Alert, cooperative, pleasant. Cranial nerves: Symmetric facial tone and trapezius. Motor: Active movement all 4 limbs. Mild weakness or apraxia left side, arm more than leg. Sensation: Intact throughout. DTRs: Symmetric and equal throughout. Mobility: Sits with physical assistance. Results CBC & Chem 7: 03/04/21 08:05 03/04/21 08:05 Labs: Abnormal Lab Results - Last 24 Hours (Table) 03/04/21 03/04/21 03/04/21 Range/Units 06:32 08:05 08:05 WBC 2.4 L (3.8-10.6) k/uL Plt Count 111 L (150-450) k/uL Lymphocytes # 0.5 L (1.0-4.8) k/uL Sodium 133 L (137-145) mmol/L Glucose 213 H (74-99) mg/dL POC Glucose (mg/dL) 167 H (75-99) mg/dL Calcium 8.1 L (8.4-10.2) mg/dL 03/04/21 03/04/21 03/04/21 Range/Units 11:46 16:41 20:49 WBC (3.8-10.6) k/uL Plt Count (150-450) k/uL Lymphocytes # (1.0-4.8) k/uL Sodium (137-145) mmol/L Glucose (74-99) mg/dL POC Glucose (mg/dL) 199 H 158 H 195 H (75-99) mg/dL Calcium (8.4-10.2) mg/dL Microbiology - Last 24 Hours (Table) 03/04/21 01:06 Blood Culture - Preliminary Blood No Growth after 24 hours Assessment and Plan (1) Stroke Current Visit: Yes Status: Acute Code(s): I63.9 - CEREBRAL INFARCTION, UNSPECIFIED SNOMED Code(s): 880887459 Plan: Impression: 1. Gait disturbance due to stroke with left hemiparesthesias. 2. Isolation precaution. Comments and plan: At this time PT and speech are ongoing and OT prescribed. Some safety concerns noted. Must review therapy notes from today. Patient with poor balance and I do not anticipate that this will correct quickly. Thus anticipating possible need and benefit of inpatient rehab this possibility discussed with patient.
[2021-03-05 06:58] LABS: Glucose,Whole Blood 183 mg/dL (75-99)
[2021-03-05] MEDS: INSULIN ASPART (NovoLOG) 100 UNIT/ML VIAL SQ SCH ×4 (07:02→21:21)
[2021-03-05] MEDS: FAMOTIDINE 20 MG TAB PO SCH ×2 (09:25→21:20)
[2021-03-05] MEDS: ASPIRIN 325 MG TAB PO SCH (09:25)
[2021-03-05] MEDS: CHOLECALCIFEROL 25 MCG (1000 IU) TABLET PO SCH (09:25)
[2021-03-05] MEDS: CLOPIDOGREL 75 MG TAB PO SCH (09:25)
[2021-03-05] MEDS: ASCORBIC ACID 500 MG TAB PO SCH ×2 (09:25→21:20)
[2021-03-05] MEDS: HEPARIN SODIUM,PORCINE/PF 5,000 UNIT/0.5 ML SYRINGE SQ SCH (09:25)
[2021-03-05] MEDS: ZINC SULFATE 220 MG CAP PO SCH (09:25)
[2021-03-05 11:53] LABS: Glucose,Whole Blood 163 mg/dL (75-99)
--- NOTE | 2021-03-05 12:31 | P.PN ---
Subjective This is a pleasant 65 years old female with past medical history of hypertension, coronary artery disease status post stents 5, history of cardiac arrest. She does not follow up with PCP Presents because of left-sided weakness and facial droop. Patient states last week she got sinus infection and she was having some headache and use some antib iotics. She was not eating or drinking well for the last week. She was sitting in bed most of the time. Last Friday about 4 days ago she started having weakness in her left side both upper and lower extremities that take her difficult to move around, she fell 4 times last time was yesterday, she could not get up. She denies chest pain or dyspnea or GI or urinary symptoms. No fever. Except for diarrhea about 3 times per day. Also patient was not eating or drinking well last few days She denies smoking, alcohol or illicit drugs. Vitas looks stable, patient's saturation of oxygen is 94% on room air. Labs reviewed showing unremarkable CBC except for mild thrombocytopenia at 114 and mild lymphopenia and 0.6. Sodium is 132, BUN is 29 and creatinine 1.1. Unknown baseline Glucose is elevated at 231 Liver enzymes not elevated. Troponin are negative 3 with 0.0-1, 0.017, 0.017. EKG showing normal sinus rhythm at [address]-T changes, evidence of LVH. QTC is 493. Chest x-ray: No acute process CT of the brain: No acute process, no hemorrhage, CTA of the head and neck showing bilateral plaque formation of the carotid artery bifurcation approximately 50% stenosis right internal carotid artery and 70% stenosis left internal carotid artery. There is some stenosis of the right middle cerebral artery approximately 70%. Hyperdensity right parietal lobe white matter suggestive of infarct 03/03/2021 Patients with persistent left hemiparesis, not improved not worsened, MRI of the brain showing right frontal infarct. Patient is on aspirin and Plavix at home which is continue with now (patient has 5 cardiac stents before). The dual antiplatelet therapy is Per neurologist team recommendation. Also patient was found to have uncontrolled diabetes with hemoglobin A1c at 10.8%. Patient was started on Levemir 7 units increased to 10 units today and NovoLog 3 units with meals increased to 5 units today. Continue with gentle hydration and/or normal saline 100 down to 75 mL/h. Vascular surgery recommended outpatient follow-up as the stroke site showing stenosis less than 50% on the right symptomatic site Echocardiogram showed ejection fraction of 55-60% Patient had persistent secondary to Colace 3 times a day prescribed in the emergency room, cholecystitis and give her 03/04/2021 Patient have persistent left hemiparesis, no significant change in her clinical situation, no dyspnea or chest pain while or rest not sure if she has some occasional cough now and then. She stated that her diarrhea is improved after stopping her Colace, also we will hold Imodium to monitor her bowel movements. Yesterday she spiked a fever of 502 and today around 100, Zosyn was started empirically but it was stopped because of poorcalcitonin came back normal at 0.09 and her chest x-ray showing increased lung markings suspicious for early pulmonary interstitial pneumonia. Patient is also has a positive test for Covid because of this we started her on multiple vitamins, CTPA and zinc. Also we will check her inflammatory markers tomorrow. Consult infectious disease for further recommendations. Urine analysis is nonsuspicious of infection Regarding her stroke, recommend dual antiplatelet therapy with aspirin and Plavix per neurologist, vascular surgery evaluated the patient for her right internal carotid artery stenosis about 50% and they recommended outpatient c atheter directed angiogram. Neurologist recommended inpatient rehab. Consult Dr. Smith Glucose controlled on Levemir 10 units and 5 units of NovoLog with meals Patient tolerates diet. Discontinue IV fluids 03/05/2021 Patient still has left hemiparesis, is the same since admission. No other spec [facility] complaint. However she continued to have diarrhea today after we stopped her Colace and Imodium 2 days ago. No abdominal pain or vomiting. We are going to check her C. diff test first. Hemodynamically she is stable. She still has low-grade fever but she is known to have Covid infection without pneumonia. Chest x-ray done yesterday showing like markers are slightly increased compared to recent exam and this could be some minimal interstitial pneumonia, however patient is on room air. We going to add dexamethasone because her oxygen saturation is slightly low at 94% on room air. Dr. Smith saw the patient and she might benefit from inpatient rehab, discussed the case with Jason the social contact worker, patient may need preauthorization so probably she will not be going today. We going to check her inflammatory markers and labs tomorrow. Repeat chest x- ray tomorrow as well Objective - Vital Signs Vital signs: Vital Signs Temp 99.6 F 03/05/21 08:00 Pulse 88 03/05/21 08:00 Resp 18 03/05/21 08:00 BP 95/67 03/05/21 08:00 Pulse Ox 94 L 03/05/21 08:00 Intake & Output 03/04/21 03/05/21 03/05/21 18:59 06:59 18:59 Intake Total 636 Output Total 650 Balance -14 Intake: Intake, IV Titration 400 Amount Piperacillin-Tazobactam 3 100 .375 gm In Sodium Chloride 0.9% 100 ml @ 25 mls/hr IVPB Q8HR [facility] Rx# :[id number] Sodium Chloride 0.9% 1, 300 000 ml @ 75 mls/hr IV . [id number] [facility] Rx#:[id number] Oral 236 Output: Urine 650 Other: Voiding Method Toilet Toilet Toilet Diaper Diaper Diaper Incontinent # Voids 3 # Bowel Movements 3 - Exam GENERAL: The patient is alert and oriented x3, not in any acute distress. Well developed, well nourished. HEENT: Pupils are round and equally reacting to light. EOMI. No scleral icterus. No conjunctival pallor. Normocephalic, atraumatic. No pharyngeal erythema. No thyromegaly. CARDIOVASCULAR: S1 and S2 present. No murmurs, rubs, or gallops. PULMONARY: Chest is clear to auscultation, no wheezing or crackles. ABDOMEN: Soft, nontender, nondistended, normoactive bowel sounds. No palpable organomegaly. MUSCULOSKELETAL: No joint swelling or deformity. EXTREMITIES: No cyanosis, clubbing, or pedal edema. -NEUROLOGICAL: Gross cranial nerves are grossly intact. Left sided weakness, and hemiparesis including both left arm and left leg. No facial deviation. Sensation is intact. SKIN: No rashes. No petechiae - Labs CBC & Chem 7: 03/04/21 08:05 03/04/21 08:05 Labs: Abnormal Lab Results - Last 24 Hours (Table) 03/04/21 03/04/21 03/04/21 Range/Units 11:46 16:41 20:49 POC Glucose (mg/dL) 199 H 158 H 195 H (75-99) mg/dL 03/05/21 Range/Units 06:54 POC Glucose (mg/dL) 183 H (75-99) mg/dL Microbiology - Last 24 Hours (Table) 03/04/21 01:06 Blood Culture - Preliminary Blood No Growth after 24 hours Assessment and Plan Assessment: Acute stroke with left hemiparesis and facial droop, secondary to right parietal lobe acute to subacute infarct Bilateral ICA stenosis, more on the left side 70% compared to the right side 50% (symptomatic site) diarrhea, rule out C. diff Possible mild pneumonia secondary to Covid Hyperglycemia, check for diabetes mellitus Fever most likely to mild bilateral Covid pneumonia Dehydration with mild hypovolemic hyponatremia and elevated creatinine, improved Hypertension History of coronary artery disease status post stents 5. Obesity with BMI of 34.9 Plan: This is a pleasant 65 years old female who presents with acute stroke Continue with aspirin and Plavix. Consult Dr. Smith for inpatient rehab Vascular surgery recommended outpatient catheter directed angiography of the right internal carotid artery stenosis Neurology consult And dexamethasone, continue with multiple vitamins, vitamin C, D and zinc. Follow-up with infectious disease. Repeat chest x-ray in the morning Labs and medication were reviewed.. Continue same treatment. Continue with symptomatic treatment. Resume home medication. Monitor lytes and vitals. DVT and GI prophylaxis. Further recommendations depends on the clinical course of the patient DVT prophylaxis: Subcutaneous Lovenox GI Prophylaxis: Pepcid PT/OT: Pending
[2021-03-05] MEDS: dexAMETHasone 2 MG TAB PO SCH (13:08)
[2021-03-05] MEDS: diphenhydrAMINE 25 MG CAP PO PRN ×2 (13:11→21:20)
--- NOTE | 2021-03-05 16:03 | P.PN ---
Subjective Progress Note Date: 03/05/21 Patient seen and examined lying in bed. He was initially seen for acute stroke with left sided weakness. Patient was started on dual antiplatelet therapy as well as high-dose statin. Patient states of left sided weakness is improving. She is not having any difficulty with swallowing. She is able to follow commands hence speech is fluent. Objective - Vital Signs Vital signs: Vital Signs Temp 100.1 F H 03/05/21 04:00 Pulse 73 03/05/21 04:00 Resp 20 03/05/21 04:00 BP 133/75 03/05/21 04:00 Pulse Ox 93 L 03/05/21 04:00 Intake & Output 03/04/21 03/05/21 03/05/21 18:59 06:59 18:59 Intake Total 636 Output Total 650 Balance -14 Intake: Intake, IV Titration 400 Amount Piperacillin-Tazobactam 3 100 .375 gm In Sodium Chloride 0.9% 100 ml @ 25 mls/hr IVPB Q8HR JEREMIAH Rx# :[id number] Sodium Chloride 0.9% 1, 300 000 ml @ 75 mls/hr IV . [id number] JEREMIAH Rx#:[id number] Oral 236 Output: Urine 650 Other: Voiding Method Toilet Toilet Diaper Diaper Incontinent # Voids 3 # Bowel Movements 3 - Exam General appearance: The patient is alert, oriented, in no acute distress. HET: Head is normocephalic and atraumatic. Pupils are equal and reactive. Neck: Supple without lymphadenopathy. Trachea midline. Heart: S1 S2. Regular rate and rhythm. Lungs: No crackles or wheezes are heard. Abdomen: Soft, nontender, nondistended. Extremities: Normal skin color and turgor. No cyanosis, rash, ulceration, clubbing, or edema. Radial and pedal pulses are 2/4 bilaterally. Neurological: Residual left upper and lower extremity weakness however improving. Speech is fluent, patient is able to follow commands. - Labs CBC & Chem 7: 03/04/21 08:05 03/04/21 08:05 Labs: Abnormal Lab Results - Last 24 Hours (Table) 03/04/21 03/04/21 03/04/21 Range/Units 11:46 16:41 20:49 POC Glucose (mg/dL) 199 H 158 H 195 H (75-99) mg/dL 03/05/21 Range/Units 06:54 POC Glucose (mg/dL) 183 H (75-99) mg/dL Microbiology - Last 24 Hours (Table) 03/04/21 01:06 Blood Culture - Preliminary Blood No Growth after 24 hours Assessment and Plan Assessment: 1. Acute right frontal infarct, with Left-sided weakness 2. Bilateral internal carotid artery stenosis, 50% on right and 70% on left per CTA 3. Coronary artery disease status post 5 MIs with stenting Plan: 1. Continue dual antiplatelet therapy and statin 2. Carotid Doppler ordered and reviewed 3. Await further recommendations from neurology 4. Consider possible outpatient catheter directed angiogram and further recommendations from vascular surgery Thank you for this consultation, and allowing us take part in the plan of care of your patient during his hospital stay. The impression and plan of care has been dictated as directed. Dr. Hernandez I performed a history and examination of this patient, discussed the same with the dictator. I agree with the dictator's note ,documented as a scribe. Any additional findings or plans will be noted.
[2021-03-05 16:41] LABS: Glucose,Whole Blood 252 mg/dL (75-99)
[2021-03-05] MEDS: ENOXAPARIN 40 MG/0.4 ML SYRINGE SQ SCH (17:22)
[2021-03-05 19:41] LABS: Glucose,Whole Blood 350 mg/dL (75-99)
[2021-03-05] MEDS: LOSARTAN 50 MG TAB PO SCH (21:20)
[2021-03-05] MEDS: INSULIN DETEMIR (LEVEMIR) 100 UNIT/ML SYR SQ SCH (21:20)
[2021-03-05] MEDS: METOPROLOL SUCCINATE (ER) 100 MG TAB.ER.24H PO SCH (21:20)
[2021-03-05] MEDS: ATORVASTATIN 80 MG TAB PO SCH (21:20)
[2021-03-05] MEDS: EZETIMIBE 10 MG TAB PO SCH (21:22)
--- NOTE | 2021-03-05 22:02 | P.CONS ---
History of Present Illness - Reason for Consult Consult date: 03/05/21 Fever and covid 19 Requesting physician: Rafat E Sheet - Chief Complaint weakness and falls x 4 days - History of Present Illness History of present illness : Patient is a 65-year-old female presenting to the ER 4 days ago for evaluation of feeling weak on the left side of the body son who has been going on for about 4 days before the patient was sent to the hospital pending the patient had multiple falls however no loss of consciousness patient also complained of some sinus congestion postnasal drip and a cough for about 4 days before presentation to the hospital did not have any fever or chills at home on arrival to the patient was afebrile subsequently he started running a fever yesterday of 102.3 F, last fever 100.1 around 4 this morning patient did have mild hypoxemia but no need for supplemental oxygen therapy patient did have a normal white count with lymphopenia creatinine was mild elevated repeat is normal AST was normal procalcitonin is normal urine has been negative patient did have positive COVID test chest x-ray no active cardiopulmonary disease patient did have an MRI of the brain with evolving acute right-sided infarct and the patient did have a carotid Doppler study with bilateral atherosclerotic plaque and no significant pelvic instability patient is currently being monitored by vascular surgery and neurology services infec tious disease was consulted last night for evaluation of fever and COVID, chest x-ray repeated yesterday shows lung max and slightly increased compared to recent exam with minimal interstitial pneumonia Review of system: CONSTITUTIONAL: Positive for weakness along with the fever. EYES: No complaint. ENT: As per history of present illness. RESPIRATORY as per history of present illness. CARDIOVASCULAR: No complaint. GENITOURINARY: No complaint. GASTROINTESTINAL: No complaint. MUSCULOSKELETAL: No complaint. INTEGUMENTARY: No complaint. PSYCHOLOGIC: No complaint. ENDOCRINE: No complaint. NEUROLOGIC: As per history of present illness. Past medical history : Reviewed, documented below Past surgical history : Reviewed, documented below Social history: Reviewed, documented below Medications: Reviewed, as documented below EXAMINATION: Vital sigans= Reviewed and documented below GENERAL DESCRIPTION: Middle-aged female lying in bed, no distress. No tachypnea or accessory muscle of respiration use. HEENT: Shows Pallor , no scleral icterus. Oral mucous membrane is dry. NECK: Trachea central, no thyromegaly. LUNGS: Unlabored breathing. Decreased intensity of breath sounds. No wheeze or crackle. HEART: S1, S2, regular rate and rhythm. ABDOMEN: Soft, no tenderness , guarding or rigidity EXTREMITIES: No edema of feet. SKIN: No rash, no masses palpable. NEUROLOGICAL: The patient is awake, alert, oriented x3, mood and affect normal. LABS AND RADIOLOGY: Reviewed results see below Assessment : 1-patient with fever more likely related to underlying COVID-19 infection in this patient's symptom has been going on for more than a week and currently not on any supplemental oxygen both of these factors will disqualify her for remdesivir per [facility] policy clinically no suspicious for secondary bacterial pneumonia or any other obvious focus of infection Plan: 1-patient to continue with the dexamethasone Lovenox is again ascorbic acid 2-no need for systemic antibiotic therapy 3-droplet isolation and respiratory support We will follow on clinical condition and cultures to further adjust medication if needed Thank you for this consultation we will follow the patient along with you Past Medical History Past Medical History: Hypertension, Myocardial Infarction (OK) Additional Past Medical History / Comment(s): 2004 cardiac arrest, 5 OK with stent placement Last Myocardial Infarction Date:: 2014 History of Any Multi-Drug Resistant Organisms: None Reported Past Surgical History: Appendectomy, Tubal Ligation Smoking Status: Never smoker Past Alcohol Use History: None Reported Past Drug Use History: None Reported Medications and Allergies Home Medications Medication Instructions Recorded Confirmed Type Amoxic-Pot Clav 875-125Mg 1 tab PO Q12HR 03/01/21 03/01/21 History [Augmentin 875-125] Atorvastatin [Lipitor] 80 mg PO HS 03/01/21 03/01/21 History Ezetimibe [Zetia] 10 mg PO HS 03/01/21 03/01/21 History Losartan Potassium 50 mg PO HS 03/01/21 03/01/21 History Metoprolol Succinate (ER) [Toprol 100 mg PO HS 03/01/21 03/01/21 History Xl] diphenhydrAMINE [Benadryl] 25 mg PO HS 03/01/21 03/01/21 History Allergies Allergy/AdvReac Type Severity Reaction Status Date / Time Sulfa (Sulfonamide Allergy Anaphylaxis Verified 03/02/21 16:07 Antibiotics) Physical Exam Vitals: Vital Signs Temp Pulse Resp BP Pulse Ox 03/05/21 08:00 99.6 F 88 18 95/67 94 L 03/05/21 04:00 100.1 F H 73 20 133/75 93 L 03/05/21 01:00 99.5 F 03/04/21 23:56 101.2 F H 88 18 132/65 95 03/04/21 20:00 98.3 F 80 16 143/75 95 03/04/21 16:41 100.8 F H 69 20 119/71 97 03/04/21 11:46 98.2 F 77 20 108/69 95 Intake and Output 03/04/21 03/05/21 03/05/21 22:59 06:59 14:59 Intake Total 118 Output Total 200 Balance -82 Intake: Oral 118 Output: Urine 200 Other: Voiding Method Toilet Toilet Toilet Diaper Diaper Diaper # Voids 3 Results CBC & Chem 7: 03/04/21 08:05 03/04/21 08:05 Labs: Abnormal Lab Results - Last 24 Hours (Table) 03/04/21 03/04/21 03/04/21 Range/Units 11:46 16:41 20:49 POC Glucose (mg/dL) 199 H 158 H 195 H (75-99) mg/dL 03/05/21 Range/Units 06:54 POC Glucose (mg/dL) 183 H (75-99) mg/dL Microbiology - Last 24 Hours (Table) 03/04/21 01:06 Blood Culture - Preliminary Blood No Growth after 24 hours
[2021-03-05 23:52] LABS: Glucose,Whole Blood 281 mg/dL (75-99)
[2021-03-06 07:00] LABS: Glucose,Whole Blood 222 mg/dL (75-99)
[2021-03-06] MEDS: INSULIN ASPART (NovoLOG) 100 UNIT/ML VIAL SQ SCH ×7 (07:06→21:09)
--- NOTE | 2021-03-06 09:03 | XR ---
EXAMINATION TYPE: XR chest 1V portable DATE OF EXAM: 03/06/2021 COMPARISON: 03/04/2021 HISTORY: Shortness of breath TECHNIQUE: Single frontal view of the chest is obtained. FINDINGS: There are peripheral left-sided infiltrates seen throughout the left lung. Underlying COPD noted. Heart size normal. Atherosclerotic change aorta. Biapical pleural thickening. No overt failur e or pneumothorax. IMPRESSION: Left-sided peripheral infiltrate correlate for pneumonia.
[2021-03-06] MEDS: ZINC SULFATE 220 MG CAP PO SCH (10:34)
[2021-03-06] MEDS: dexAMETHasone 2 MG TAB PO SCH (10:34)
[2021-03-06] MEDS: ASCORBIC ACID 500 MG TAB PO SCH ×2 (10:34→21:09)
[2021-03-06] MEDS: CHOLECALCIFEROL 25 MCG (1000 IU) TABLET PO SCH (10:34)
[2021-03-06] MEDS: ASPIRIN 325 MG TAB PO SCH (10:35)
[2021-03-06] MEDS: FAMOTIDINE 20 MG TAB PO SCH ×2 (10:35→21:09)
[2021-03-06] MEDS: CLOPIDOGREL 75 MG TAB PO SCH (10:35)
[2021-03-06] MEDS: diphenhydrAMINE 25 MG CAP PO PRN ×2 (10:39→21:12)
[2021-03-06 11:29] LABS: Glucose,Whole Blood 196 mg/dL (75-99)
[2021-03-06 12:15] LABS: Glucose,Whole Blood 209 mg/dL (75-99)
[2021-03-06 12:20] LABS: C Reactive Protein 3.7 mg/dL (<1.0)
[2021-03-06] MEDS: CHOLESTYRAMINE (WITH SUGAR) 4 GM PACKET PO SCH ×2 (12:24→17:20)
[2021-03-06] MEDS: ENOXAPARIN 40 MG/0.4 ML SYRINGE SQ SCH (12:27)
--- NOTE | 2021-03-06 14:56 | P.PN ---
Subjective Progress Note Date: 03/06/21 Patient seen and examined lying in bed. He was initially seen for acute stroke with left sided weakness. Patient was started on dual antiplatelet therapy as well as high-dose statin. Patient states of left sided weakness is improving. She is not having any difficulty with swallowing. Neurology is recommending inpatient acute rehab. Objective - Vital Signs Vital signs: Vital Signs Temp 98.6 F 03/06/21 12:00 Pulse 63 03/06/21 12:00 Resp 16 03/06/21 12:00 BP 120/63 03/06/21 12:00 Pulse Ox 98 03/06/21 12:00 Intake & Output 03/05/21 03/06/21 03/06/21 18:59 06:59 18:59 Intake Total 1100 Output Total 400 Balance -400 1100 Intake: Oral 1100 Output: Urine 400 Other: Voiding Method Toilet Toilet Toilet Diaper Diaper Diaper # Voids 2 2 # Bowel Movements 1 - Exam General appearance: The patient is alert, oriented, in no acute distress. HET: Head is normocephalic and atraumatic. Pupils are equal and reactive. Neck: Supple without lymphadenopathy. Trachea midline. Heart: S1 S2. Regular rate and rhythm. Lungs: No crackles or wheezes are heard. Abdomen: Soft, nontender, nondistended. Extremities: Normal skin color and turgor. No cyanosis, rash, ulceration, clubbing, or edema. Radial and pedal pulses are 2/4 bilaterally. Neurological: Residual left upper and lower extremity weakness however improving. Speech is fluent, patient is able to follow commands. - Labs CBC & Chem 7: 03/04/21 08:05 03/04/21 08:05 Labs: Abnormal Lab Results - Last 24 Hours (Table) 03/05/21 03/05/21 03/05/21 Range/Units 16:40 19:39 23:40 POC Glucose (mg/dL) 252 H 350 H 281 H (75-99) mg/dL Lactate Dehydrogenase (313-618) U/L C-Reactive Protein (<1.0) mg/dL 03/06/21 03/06/21 03/06/21 Range/Units 06:56 11:15 11:27 POC Glucose (mg/dL) 222 H 196 H (75-99) mg/dL Lactate Dehydrogenase 1174 H (313-618) U/L C-Reactive Protein 3.7 H (<1.0) mg/dL 03/06/21 Range/Units 12:13 POC Glucose (mg/dL) 209 H (75-99) mg/dL Lactate Dehydrogenase (313-618) U/L C-Reactive Protein (<1.0) mg/dL Microbiology - Last 24 Hours (Table) 03/04/21 01:06 Blood Culture - Preliminary Blood No Growth after 48 hours Assessment and Plan Assessment: 1. Acute right frontal infarct, with Left-sided weakness 2. Bilateral internal carotid artery stenosis, 50% on right and 70% on left per CTA 3. Coronary artery disease status post 5 MIs with stenting Plan: 1. Continue dual antiplatelet therapy and statin 2. Carotid Doppler ordered and reviewed 3. Await further recommendations from neurology 4. Recommend outpatient follow-up for catheter directed angiogram. Patient is cleared from vascular surgery for discharge. Thank you for this consultation, we will sign off at this time. The impression and plan of care has been dictated as directed. Dr. Hernandez I performed a history and examination of this patient, discussed the same with the dictator. I agree with the dictator's note ,documented as a scribe. Any additional findings or plans will be noted.
--- NOTE | 2021-03-06 15:32 | P.PN ---
Subjective Progress Note Date: 03/06/21 I am seeing the patient for the first time during this admission. Please refer to Dr. Boothe and Dr. Frances's notes for further details. Patient states her left sided weakness is somewhat better. Per nurse no new neurological issues. Seems that the patient's having diarrhea for past two week and her C. diff is negative. Objective - Vital Signs Vital signs: Vital Signs Temp 98.6 F 03/06/21 12:00 Pulse 63 03/06/21 12:00 Resp 16 03/06/21 12:00 BP 120/63 03/06/21 12:00 Pulse Ox 98 03/06/21 12:00 Intake & Output 03/05/21 03/06/21 03/06/21 18:59 06:59 18:59 Intake Total 1100 Output Total 400 Balance -400 1100 Intake: Oral 1100 Output: Urine 400 Other: Voiding Method Toilet Toilet Toilet Diaper Diaper Diaper # Voids 2 2 # Bowel Movements 1 - Exam Gen.: The patient is reclining in the bed. She is in no acute distress. She is obese. Neurological examination Mental status: The patient is awake, alert and oriented self, place and time. Patient is following commands. No aphasia. Cranial nerves: Pupils are equal at 3 mm and reactive. Visual goldberg are full to confrontation. Extraocular movements are intact. There is no nystagmus. Facial sensation is intact. There is mild left-sided facial drooping. No dysarthria. Motor: Left upper and lower extremity strength 4+/5. Right-sided strength 5/5. Sensation: Grossly intact to light touch throughout WORK-UP: Vanegas virus PCR is detected and was positive on 03/04/2021. Lipid panels triglyceride of 220, cholesterol of 116, LDLs 50, HDL of the 21. Hemoglobin A1c is 10.9. 2-D echo revealed normal left frontal grid size. Mild concentric LVH. EF is between 55-60%. Bubble study was negative for any shunt. Interatrial and interventricular septum intact. Trace MR. Brain MRI revealed evolving acute right-sided infarct centered posterior deep right frontal lobe. Small vessel ischemic disease. CTA of head and neck showed bilateral plaque formation at the carotid bifurcation with approximately 50% stenosis right ICA and 70% stenosis left ICA. There is some stenosis of the right middle cerebral artery approximately 70%. Hypodensity right parietal lobe white matter suggestive of infarct. Carotid duplex was reported as bilateral atherosclerotic plaque with no significant hemodynamic stenosis of the internal carotid artery bilaterally. Bilateral elevated ECA velocities associate with stenosis. - Labs CBC & Chem 7: 03/04/21 08:05 03/04/21 08:05 Labs: Abnormal Lab Results - Last 24 Hours (Table) 03/05/21 03/05/21 03/05/21 Range/Units 16:40 19:39 23:40 POC Glucose (mg/dL) 252 H 350 H 281 H (75-99) mg/dL Lactate Dehydrogenase (313-618) U/L C-Reactive Protein (<1.0) mg/dL 03/06/21 03/06/21 03/06/21 Range/Units 06:56 11:15 11:27 POC Glucose (mg/dL) 222 H 196 H (75-99) mg/dL Lactate Dehydrogenase 1174 H (313-618) U/L C-Reactive Protein 3.7 H (<1.0) mg/dL 03/06/21 Range/Units 12:13 POC Glucose (mg/dL) 209 H (75-99) mg/dL Lactate Dehydrogenase (313-618) U/L C-Reactive Protein (<1.0) mg/dL Microbiology - Last 24 Hours (Table) 03/04/21 01:06 Blood Culture - Preliminary Blood No Growth after 48 hours Assessment and Plan Assessment: * Acute ischemic stroke(right subcortical frontal) with left hemiparesis. Patient's symptoms have been present for 48 hours prior to arrival. Patient was not a candidate for TPA. Her NIH stroke scale is 5 ( MILD LEFT HEMIPARESIS AND LEFT SIDED ATAXIA) * Bilateral carotid artery disease, 70% of the left (asymptomatic side), 50% on the right (symptomatic side) per CTA but no significant stenosis on carotid. * COVID-19 pneumonia * Uncontrolled DM (HbA1c of 10.9) * Hypertriglycerdermia * Hypertension * Hyperlipidemia * Coronary artery disease * X tobacco use * Obesity Plan: * Patient used to be on dual antiplatelet medication since her NM in 2003. She has ran out of Plavix 2 weeks ago. Patient will be resumed on dual antiplatelet medications. * Patient is on Lipitor 80mg qhs. Goal of LDL is <70 in strokes. * Vascular surgery on board for left ICA stenosis. They stated possible outpatient catheter redirected angiogram and further recommendation from vascular surgery * PT OT and OPERATIONS BOARDMAN are consulted. * Continue neuro checks * Continue cardiac monitoring. Was notified by telemetry team, that patient has no A-fib or flutter. * Ordered event monitor for 30 days and to follow-up with podiatric medicine professor as outpatient. * Recommend starting the patient on fibrate for her hypertriglyceridemia we'll defer the management to the primary team. * ID team is on board for COVID-19 not a pneumonia * Pulmonary team is on board * Patient will benefit from either acute or subacute rehab * We'll defer the rest of medical management to the primary team * Upon discharge the patient needs to follow-up with a neurologist within 1-2 weeks. * For DVT prophylaxis the patient is on Lovenox. The plan is discussed with the patient. Otherwise no further neurological work-up. Patient is clear from neurological perspective. Vince Gomes M.D. Neuro-Hospitalist Time with Patient: Less than 30
[2021-03-06 16:41] LABS: Glucose,Whole Blood 345 mg/dL (75-99)
--- NOTE | 2021-03-06 17:44 | P.CNPUL ---
History of Present Illness Consult date: 03/06/21 Requesting physician: Rafat Wolfe Reason for consult: other Chief complaint: Positive COVID-19 test History of present illness: This is a 65-year-old white female patient past medical history of hypertension, previous history of VA, cardiac arrest, coronary artery disease with previous stent placement, who was admitted to the hospital on 03/01/2021 when she presented with symptoms of left-sided weakness that was present for approximately 4 days prior to presentation. Patient apparently had a number of falls at home. Brain CT showed a focal hypodensity in the right parietal lobe that could relate to chronic infarct. No hemorrhage. Angiography CT showed bilateral plaque formation at the carotid bifurcation and approximately 50% stenosis in the right ICA and 70% stenosis in the left ICA, there was hypodensity in the right parietal lobe white matter suggestive of infarct. EKG was normal sinus rhythm. Carotid Doppler revealed bilateral atherosclerotic plaque with no significant hemodynamic stenosis of the internal carotid arteries bilaterally. Echocardiogram showed mild concentric LVH, EF of 55-60%, trace mitral regurg, trace tricuspid regurg, no evidence of pulmonary hypertension with right-sided pressure of less than 35 mmHg. MRI of the brain showed involving acute right-sided infarct centered posterior in the deep right frontal lobe, and background mild diffuse cerebral atrophy. Currently patient is recovering from her acute CVA, still has left-sided weakness, no dysphagia, no dysarthria, she is breathing comfortably, she has no pulmonary symptoms whatsoever, her initial chest x-ray on admission showed no acute pulmonary process, patient was evaluated by Dr. Mosher and was accepted for inpatient rehab. Prior to sending the patient to the rehabilitation Center patient was tested for COVID-19 as a routine preadmission testing for rehab placement and was found to be positive, her chest x-ray today showed left-sided peripheral infiltrate. Patient currently on room air, pulse ox is 98%, reports no cough, no shortness of breath, no fever or chills. She was placed on dexamethasone 6 mg daily, she is on prophylactic Lovenox, she is on multivitamins in the form of vitamin C, vitamin D, and zinc, she is on aspirin 325 mg daily, intensive dose Lipitor 80 mg daily, Plavix 75 mg daily, she is on blood pressure medications with Toprol-XL, Cozaar, and Zetia. She is very comfortable, she states she was surprised she tested positive for COVID-19. Reports no pulmonary symptoms. Review of Systems All systems: negative Constitutional: Denies chills, Denies fever Eyes: denies blurred vision, denies pain Ears, nose, mouth and throat: Denies headache, Denies sore throat Cardiovascular: Denies chest pain, Denies shortness of breath Respiratory: Denies cough Gastrointestinal: Denies abdominal pain, Denies diarrhea, Denies nausea, Denies vomiting Genitourinary: Denies dysuria, Denies hematuria Musculoskeletal: Denies myalgias Integumentary: Denies pruritus, Denies rash Neurological: Reports gait dysfunction, Reports lack of coordination, Reports motor disturbance, Reports weakness, Denies numbness Psychiatric: Denies anxiety, Denies depression Endocrine: Denies fatigue, Denies weight change Past Medical History Past Medical History: Hypertension, Myocardial Infarction (VA) Additional Past Medical History / Comment(s): 2004 cardiac arrest, 5 VA with stent placement Last Myocardial Infarction Date:: 2014 History of Any Multi-Drug Resistant Organisms: None Reported Past Surgical History: Appendectomy, Tubal Ligation Smoking Status: Never smoker Past Alcohol Use History: None Reported Past Drug Use History: None Reported Medications and Allergies Home Medications Medication Instructions Recorded Confirmed Type Atorvastatin [Lipitor] 80 mg PO HS 03/01/21 03/01/21 History Ezetimibe [Zetia] 10 mg PO HS 03/01/21 03/01/21 History Losartan Potassium 50 mg PO HS 03/01/21 03/01/21 History Metoprolol Succinate (ER) [Toprol 100 mg PO HS 03/01/21 03/01/21 History XL] diphenhydrAMINE [Benadryl] 25 mg PO HS 03/01/21 03/01/21 History Acetaminophen Tab [Tylenol] 325 mg PO Q6HR PRN tab 03/06/21 Rx Ascorbic Acid [Vitamin C] 500 mg PO BID #60 tab 03/06/21 Rx Aspirin 325 mg PO DAILY #30 tab 03/06/21 Rx Cholecalciferol [Vitamin D3 (25 50 mcg PO DAILY #60 tablet 03/06/21 Rx Mcg = 1000 Iu)] Cholestyramine (with Sugar) 4 gm PO BID@1000,1800 #6 packet 03/06/21 Rx [Questran Packet] Clopidogrel [Plavix] 75 mg PO DAILY #30 tab 03/06/21 Rx Dexamethasone [Decadron] 6 mg PO DAILY 8 Days #8 tablet 03/06/21 Rx Famotidine [Pepcid] 20 mg PO BID #60 tab 03/06/21 Rx INSULIN ASPART (NovoLOG) [NovoLOG 0 unit SQ ACHS ml 03/06/21 Rx (formulary)] INSULIN ASPART (NovoLOG) [NovoLOG 7 unit SQ AC-TID #10 ml 03/06/21 Rx (formulary)] Insulin Detemir (Levemir) [Levemir] 15 unit SQ HS #10 ml 03/06/21 Rx Zinc Sulfate [Orazinc] 220 mg PO DAILY #60 cap 03/06/21 Rx Allergies Allergy/AdvReac Type Severity Reaction Status Date / Time Sulfa (Sulfonamide Allergy Anaphylaxis Verified 03/02/21 16:07 Antibiotics) Physical Exam Vitals: Vital Signs Temp Pulse Resp BP Pulse Ox 03/06/21 12:00 98.6 F 63 16 120/63 98 03/06/21 08:00 98.6 F 62 16 147/83 96 03/06/21 03:58 98.4 F 60 16 129/61 95 03/05/21 23:35 97.6 F 80 18 124/76 95 03/05/21 19:53 98.2 F 85 18 122/75 95 Intake and Output 03/06/21 03/06/21 03/06/21 06:59 14:59 22:59 Intake Total 1100 240 Output Total 200 Balance 1100 40 Intake: Oral 1100 240 Output: Urine 200 Other: Voiding Method Toilet Toilet Diaper Diaper # Voids 2 GENERAL EXAM: Alert, very pleasant, 65-year-old obese white female, resting comfortably in bed, breathing comfortably, currently on room air with a pulse ox of 99% comfortable in no apparent distress. HEAD: Normocephalic/atraumatic. EYES: Normal reaction of pupils, equal size. Conjunctiva pink, sclera white. NOSE: Clear with pink turbinates. THROAT: No erythema or exudates. NECK: No masses, no JVD, no thyroid enlargement, no adenopathy. CHEST: No chest wall deformity. Symmetrical expansion. LUNGS: Equal air entry with no crackles, wheeze, rhonchi or dullness. CVS: Regular rate and rhythm, normal S1 and S2, no gallops, no murmurs, no rubs ABDOMEN: Soft, nontender. No hepatosplenomegaly, normal bowel sounds, no guarding or rigidity. EXTREMITIES: No clubbing, no edema, no cyanosis, 2+ pulses and upper and lower extremities. MUSCULOSKELETAL: Muscle strength and tone normal. SPINE: No scoliosis or deformity SKIN: No rashes CENTRAL NERVOUS SYSTEM: Alert and oriented -3. Patient reports some residual left arm weakness tone is normal in all 4 extremities. PSYCHIATRIC: Alert and oriented -3. Appropriate affect. Intact judgment and insight. Results - Laboratory Findings CBC and BMP: 03/04/21 08:05 03/04/21 08:05 PT/INR, D-dimer PT 10.3 sec (9.0-12.0) 03/01/21 22:28 INR 1.0 (<1.2) 03/01/21 22:28 Abnormal lab findings: Abnormal Labs 03/01/21 03/01/21 03/01/21 22:28 22:28 22:28 WBC Plt Count 114 L Lymphocytes # 0.6 L Sodium 132 L BUN 29 H Creatinine 1.11 H Glucose 231 H POC Glucose (mg/dL) Hemoglobin A1c 10.6 H Calcium Lactate Dehydrogenase C-Reactive Protein Triglycerides VLDL Cholesterol, Calc HDL Cholesterol Urine Appearance Urine Protein Urine Glucose (UA) Uric Acid Crystals Urine Bacteria Coronavirus (PCR) 03/02/21 03/02/21 03/02/21 03:54 05:34 15:49 WBC Plt Count Lymphocytes # Sodium BUN Creatinine Glucose POC Glucose (mg/dL) 159 H 215 H Hemoglobin A1c Calcium Lactate Dehydrogenase C-Reactive Protein Triglycerides 220.00 H VLDL Cholesterol, Calc 44.00 H HDL Cholesterol 21.10 L Urine Appearance Urine Protein Urine Glucose (UA) Uric Acid Crystals Urine Bacteria Coronavirus (PCR) 03/02/21 03/02/21 03/03/21 19:46 19:56 05:56 WBC Plt Count Lymphocytes # Sodium BUN Creatinine Glucose POC Glucose (mg/dL) 221 H 193 H Hemoglobin A1c Calcium Lactate Dehydrogenase C-Reactive Protein Triglycerides VLDL Cholesterol, Calc HDL Cholesterol Urine Appearance Urine Protein Trace H Urine Glucose (UA) 2+ H Uric Acid Crystals Urine Bacteria Coronavirus (PCR) 03/03/21 03/03/21 03/03/21 08:26 08:26 11:59 WBC Plt Count Lymphocytes # Sodium 135 L BUN Creatinine Glucose 206 H POC Glucose (mg/dL) 220 H Hemoglobin A1c 10.9 H Calcium 8.3 L Lactate Dehydrogenase C-Reactive Protein Triglycerides VLDL Cholesterol, Calc HDL Cholesterol Urine Appearance Urine Protein Urine Glucose (UA) Uric Acid Crystals Urine Bacteria Coronavirus (PCR) 03/03/21 03/03/21 03/04/21 16:26 20:40 04:05 WBC Plt Count Lymphocytes # Sodium BUN Creatinine Glucose POC Glucose (mg/dL) 176 H 179 H Hemoglobin A1c Calcium Lactate Dehydrogenase C-Reactive Protein Triglycerides VLDL Cholesterol, Calc HDL Cholesterol Urine Appearance Urine Protein Urine Glucose (UA) Uric Acid Crystals Urine Bacteria Coronavirus (PCR) Detected A 03/04/21 03/04/21 03/04/21 04:25 06:32 08:05 WBC 2.4 L Plt Count 111 L Lymphocytes # 0.5 L Sodium BUN Creatinine Glucose POC Glucose (mg/dL) 167 H Hemoglobin A1c Calcium Lactate Dehydrogenase C-Reactive Protein Triglycerides VLDL Cholesterol, Calc HDL Cholesterol Urine Appearance Turbid H Urine Protein Urine Glucose (UA) Uric Acid Crystals Rare H Urine Bacteria Rare H Coronavirus (PCR) 03/04/21 03/04/21 03/04/21 08:05 11:46 16:41 WBC Plt Count Lymphocytes # Sodium 133 L BUN Creatinine Glucose 213 H POC Glucose (mg/dL) 199 H 158 H Hemoglobin A1c Calcium 8.1 L Lactate Dehydrogenase C-Reactive Protein Triglycerides VLDL Cholesterol, Calc HDL Cholesterol Urine Appearance Urine Protein Urine Glucose (UA) Uric Acid Crystals Urine Bacteria Coronavirus (PCR) 03/04/21 03/05/21 03/05/21 20:49 06:54 11:52 WBC Plt Count Lymphocytes # Sodium BUN Creatinine Glucose POC Glucose (mg/dL) 195 H 183 H 163 H Hemoglobin A1c Calcium Lactate Dehydrogenase C-Reactive Protein Triglycerides VLDL Cholesterol, Calc HDL Cholesterol Urine Appearance Urine Protein Urine Glucose (UA) Uric Acid Crystals Urine Bacteria Coronavirus (PCR) 03/05/21 03/05/21 03/05/21 16:40 19:39 23:40 WBC Plt Count Lymphocytes # Sodium BUN Creatinine Glucose POC Glucose (mg/dL) 252 H 350 H 281 H Hemoglobin A1c Calcium Lactate Dehydrogenase C-Reactive Protein Triglycerides VLDL Cholesterol, Calc HDL Cholesterol Urine Appearance Urine Protein Urine Glucose (UA) Uric Acid Crystals Urine Bacteria Coronavirus (PCR) 03/06/21 03/06/21 03/06/21 06:56 11:15 11:27 WBC Plt Count Lymphocytes # Sodium BUN Creatinine Glucose POC Glucose (mg/dL) 222 H 196 H Hemoglobin A1c Calcium Lactate Dehydrogenase 1174 H C-Reactive Protein 3.7 H Triglycerides VLDL Cholesterol, Calc HDL Cholesterol Urine Appearance Urine Protein Urine Glucose (UA) Uric Acid Crystals Urine Bacteria Coronavirus (PCR) 03/06/21 03/06/21 12:13 16:38 WBC Plt Count Lymphocytes # Sodium BUN Creatinine Glucose POC Glucose (mg/dL) 209 H 345 H Hemoglobin A1c Calcium Lactate Dehydrogenase C-Reactive Protein Triglycerides VLDL Cholesterol, Calc HDL Cholesterol Urine Appearance Urine Protein Urine Glucose (UA) Uric Acid Crystals Urine Bacteria Coronavirus (PCR) - Diagnostic Findings Chest x-ray: report reviewed, image reviewed Additional studies: CT of the brain, angiography CT of the brain, carotid Doppler, echocardiogram, brain MRI reviewed Assessment and Plan Plan: Assessment: #1. COVID-19 pneumonia, without pulmonary symptoms, no hypoxia, this was an incidental finding as part of the preadmission testing for rehab placement following acute ischemic CVA in the right subcortical frontal with left hemiparesis. Patient was not a candidate for TPA. Patient has no complaints of shortness of breath, she is on room air with a pulse ox of 99%, her chest x-ray initially showed no acute findings, current chest x-ray showing left-sided peripheral infiltrate. Chronic stable, #2. Acute ischemic CVA with left-sided hemiparesis #3. Bilateral carotid stenosis, with 70% on the left, and 50% on the right, being followed by vascular surgery #4. Uncontrolled diabetes mellitus with hemoglobin A1c of 10.9, #5. Hypertension #6. Hyperlipidemia #7. Coronary artery disease with previous stenting #8. Previous history of tobacco use #9. Morbid obesity with BMI of 34.9 kg/m Plan: Patient's chest x-ray and all diagnostics have been reviewed Initial chest x-ray was negative, her subsequent chest x-ray showing left-sided peripheral infiltrate However she reports no pulmonary symptoms She is on room air Continue Decadron Not a candidate for Remdesivir due to unclear timing of symptom onset Continue multivitamins Neurology recommendations Patient is stable for transfer to inpatient rehab from pulmonary perspective Continue prophylactic anticoagulation Procalcitonin level and inflammatory markers have been noted Obtain a d-dimer I performed a history & physical examination of the patient and discussed their management with my nurse practitioner, Vandana Levi. I reviewed the nurse practitioner's note and agree with the documented findings and plan of care. Lung sounds are positive for clear breath sounds throughout the lung goldberg. The findings and the impression was discussed with the patient. I attest to the documentation by the nurse practitioner. Time with Patient: Greater than 30
--- NOTE | 2021-03-06 20:12 | P.PN ---
Subjective This is a pleasant 65 years old female with past medical history of hypertension, coronary artery disease status post stents 5, history of cardiac arrest. She does not follow up with PCP Presents because of left-sided weakness and facial droop. Patient states last week she got sinus infection and she was having some headache and use some antib iotics. She was not eating or drinking well for the last week. She was sitting in bed most of the time. Last Friday about 4 days ago she started having weakness in her left side both upper and lower extremities that take her difficult to move around, she fell 4 times last time was yesterday, she could not get up. She denies chest pain or dyspnea or GI or urinary symptoms. No fever. Except for diarrhea about 3 times per day. Also patient was not eating or drinking well last few days She denies smoking, alcohol or illicit drugs. Vitas looks stable, patient's saturation of oxygen is 94% on room air. Labs reviewed showing unremarkable CBC except for mild thrombocytopenia at 114 and mild lymphopenia and 0.6. Sodium is 132, BUN is 29 and creatinine 1.1. Unknown baseline Glucose is elevated at 231 Liver enzymes not elevated. Troponin are negative 3 with 0.0-1, 0.017, 0.017. EKG showing normal sinus rhythm at [address]-T changes, evidence of LVH. QTC is 493. Chest x-ray: No acute process CT of the brain: No acute process, no hemorrhage, CTA of the head and neck showing bilateral plaque formation of the carotid artery bifurcation approximately 50% stenosis right internal carotid artery and 70% stenosis left internal carotid artery. There is some stenosis of the right middle cerebral artery approximately 70%. Hyperdensity right parietal lobe white matter suggestive of infarct 03/03/2021 Patients with persistent left hemiparesis, not improved not worsened, MRI of the brain showing right frontal infarct. Patient is on aspirin and Plavix at home which is continue with now (patient has 5 cardiac stents before). The dual antiplatelet therapy is Per neurologist team recommendation. Also patient was found to have uncontrolled diabetes with hemoglobin A1c at 10.8%. Patient was started on Levemir 7 units increased to 10 units today and NovoLog 3 units with meals increased to 5 units today. Continue with gentle hydration and/or normal saline 100 down to 75 mL/h. Vascular surgery recommended outpatient follow-up as the stroke site showing stenosis less than 50% on the right symptomatic site Echocardiogram showed ejection fraction of 55-60% Patient had persistent secondary to Colace 3 times a day prescribed in the emergency room, cholecystitis and give her 03/04/2021 Patient have persistent left hemiparesis, no significant change in her clinical situation, no dyspnea or chest pain while or rest not sure if she has some occasional cough now and then. She stated that her diarrhea is improved after stopping her Colace, also we will hold Imodium to monitor her bowel movements. Yesterday she spiked a fever of 502 and today around 100, Zosyn was started empirically but it was stopped because of poorcalcitonin came back normal at 0.09 and her chest x-ray showing increased lung markings suspicious for early pulmonary interstitial pneumonia. Patient is also has a positive test for Covid because of this we started her on multiple vitamins, CTPA and zinc. Also we will check her inflammatory markers tomorrow. Consult infectious disease for further recommendations. Urine analysis is nonsuspicious of infection Regarding her stroke, recommend dual antiplatelet therapy with aspirin and Plavix per neurologist, vascular surgery evaluated the patient for her right internal carotid artery stenosis about 50% and they recommended outpatient c atheter directed angiogram. Neurologist recommended inpatient rehab. Consult Dr. Smith Glucose controlled on Levemir 10 units and 5 units of NovoLog with meals Patient tolerates diet. Discontinue IV fluids 03/05/2021 Patient still has left hemiparesis, is the same since admission. No other spec [facility] complaint. However she continued to have diarrhea today after we stopped her Colace and Imodium 2 days ago. No abdominal pain or vomiting. We are going to check her C. diff test first. Hemodynamically she is stable. She still has low-grade fever but she is known to have Covid infection without pneumonia. Chest x-ray done yesterday showing like markers are slightly increased compared to recent exam and this could be some minimal interstitial pneumonia, however patient is on room air. We going to add dexamethasone because her oxygen saturation is slightly low at 94% on room air. Dr. Smith saw the patient and she might benefit from inpatient rehab, discussed the case with Jason the [employer] social worker, patient may need preauthorization so probably she will not be going today. We going to check her inflammatory markers and labs tomorrow. Repeat chest x- ray tomorrow as well 03/06/2021 Patient initially admitted with left sided hemiparesis secondary to right-sided stroke, after she ran out of her Plavix for 2 weeks and she was taken only baby aspirin. Currently as per Plavix resumed and today for the first time she's reports improvement in her left upper and lower extremity movement close to normal as per patient. However neurological services recommended event monitor and vascular surgery recommended outpatient catheter directed angiogram. Also patient with Covid infection, repeat chest x-ray today showing more infiltrate on the left side but patient is on room air. And she is saturating well. Inflammatory markers slightly elevated and throatcalcitonin is negative while d-dimer is requested by pulmonary team and pending. Currently she remains on multiple vitamins for her Covid infection, vitamin C, D and zinc, We will continue dexamethasone because she is mildly hypoxic at 92% Patient today is considered for possible discharge but she needs prior authorization Objective - Vital Signs Vital signs: Vital Signs Temp 98.4 F 03/06/21 03:58 Pulse 60 03/06/21 03:58 Resp 16 03/06/21 03:58 BP 129/61 03/06/21 03:58 Pulse Ox 95 03/06/21 03:58 Intake & Output 03/05/21 03/06/21 03/06/21 18:59 06:59 18:59 Intake Total 240 Output Total 400 Balance -400 240 Intake: Oral 240 Output: Urine 400 Other: Voiding Method Toilet Toilet Diaper Diaper # Voids 2 2 # Bowel Movements 1 - Exam GENERAL: The patient is alert and oriented x3, not in any acute distress. Well developed, well nourished. HEENT: Pupils are round and equally reacting to light. EOMI. No scleral icterus. No conjunctival pallor. Normocephalic, atraumatic. No pharyngeal erythema. No thyromegaly. CARDIOVASCULAR: S1 and S2 present. No murmurs, rubs, or gallops. PULMONARY: Chest is clear to auscultation, no wheezing or crackles. ABDOMEN: Soft, nontender, nondistended, normoactive bowel sounds. No palpable organomegaly. MUSCULOSKELETAL: No joint swelling or deformity. EXTREMITIES: No cyanosis, clubbing, or pedal edema. -NEUROLOGICAL: Gross cranial nerves are grossly intact. Left sided weakness, and hemiparesis including both left arm and left leg. No facial deviation. Sensation is intact. SKIN: No rashes. No petechiae - Labs CBC & Chem 7: 03/04/21 08:05 03/04/21 08:05 Labs: Abnormal Lab Results - Last 24 Hours (Table) 03/05/21 03/05/21 03/05/21 Range/Units 11:52 16:40 19:39 POC Glucose (mg/dL) 163 H 252 H 350 H (75-99) mg/dL 03/05/21 03/06/21 Range/Units 23:40 06:56 POC Glucose (mg/dL) 281 H 222 H (75-99) mg/dL Microbiology - Last 24 Hours (Table) 03/04/21 01:06 Blood Culture - Preliminary Blood No Growth after 48 hours Assessment and Plan Assessment: Acute stroke with left hemiparesis and facial droop, secondary to right parietal lobe acute to subacute infarct Bilateral ICA stenosis, more on the left side 70% compared to the right side 50% (symptomatic site) diarrhea, rule out C. diff Possible mild pneumonia secondary to Covid Hyperglycemia, check for diabetes mellitus Fever most likely to mild bilateral Covid pneumonia Dehydration with mild hypovolemic hyponatremia and elevated creatinine, improved Hypertension History of coronary artery disease status post stents 5. Obesity with BMI of 34.9 Plan: This is a pleasant 65 years old female who presents with acute stroke Continue with aspirin and Plavix. Consult Dr. Smith for inpatient rehab Vascular surgery recommended outpatient catheter directed angiography of the right internal carotid artery stenosis Neurology consult, recommend event monitor Continue with dexamethasone, continue with multiple vitamins, vitamin C, D and zinc. Follow-up with infectious disease. Repeat chest x-ray in the morning Labs and medication were reviewed.. Continue same treatment. Continue with symptomatic treatment. Resume home medication. Monitor lytes and vitals. DVT and GI prophylaxis. Further recommendations depends on the clinical course of the patient DVT prophylaxis: Subcutaneous Lovenox GI Prophylaxis: Pepcid PT/OT: Pending
[2021-03-06 20:41] LABS: Glucose,Whole Blood 357 mg/dL (75-99)
[2021-03-06] MEDS: INSULIN DETEMIR (LEVEMIR) 100 UNIT/ML SYR SQ SCH (21:09)
[2021-03-06] MEDS: LOSARTAN 50 MG TAB PO SCH (21:09)
[2021-03-06] MEDS: ATORVASTATIN 80 MG TAB PO SCH (21:09)
[2021-03-06] MEDS: METOPROLOL SUCCINATE (ER) 100 MG TAB.ER.24H PO SCH (21:37)
[2021-03-06] MEDS: EZETIMIBE 10 MG TAB PO SCH (21:37)
[2021-03-07 07:11] LABS: Glucose,Whole Blood 275 mg/dL (75-99)
[2021-03-07] MEDS: CLOPIDOGREL 75 MG TAB PO SCH (08:21)
[2021-03-07] MEDS: CHOLECALCIFEROL 25 MCG (1000 IU) TABLET PO SCH (08:21)
[2021-03-07] MEDS: ASCORBIC ACID 500 MG TAB PO SCH (08:21)
[2021-03-07] MEDS: ASPIRIN 325 MG TAB PO SCH (08:21)
[2021-03-07] MEDS: CHOLESTYRAMINE (WITH SUGAR) 4 GM PACKET PO SCH ×2 (08:21→17:23)
[2021-03-07] MEDS: ZINC SULFATE 220 MG CAP PO SCH (08:21)
[2021-03-07] MEDS: dexAMETHasone 2 MG TAB PO SCH (08:22)
[2021-03-07] MEDS: INSULIN ASPART (NovoLOG) 100 UNIT/ML VIAL SQ SCH ×6 (08:22→17:23)
[2021-03-07] MEDS: FAMOTIDINE 20 MG TAB PO SCH (08:22)
[2021-03-07 10:54] VITALS: TEMP 98.1
[2021-03-07 11:53] LABS: Glucose,Whole Blood 286 mg/dL (75-99)
[2021-03-07 15:07] VITALS: BP 186/95; PULSE 61; RESP 16
[2021-03-07 16:44] LABS: Glucose,Whole Blood 278 mg/dL (75-99)
[2021-03-07] MEDS: ENOXAPARIN 40 MG/0.4 ML SYRINGE SQ SCH (17:13)
--- NOTE | 2021-03-07 20:40 | P.PN ---
Subjective Progress Note Date: 03/06/21 Principal diagnosis: Covid19 infection Patient is a 65-year-old female presented to hospital for evaluation of weakness And multiple falls patient has been diagnosed with CVA also noticed to be positive for COVID-19 however no significant respiratory symptoms or hypoxemia. On today's evaluation that is 03/06/2021 the patient denies having any fever or any chills, patient is breathing more comfortably still on room air patient denies having any nausea no vomiting no abdominal pain and no diarrhea Objective - Vital Signs Vital signs: Vital Signs Temp 98.1 F 03/07/21 09:45 Pulse 63 03/07/21 09:45 Resp 15 03/07/21 09:45 BP 127/68 03/07/21 09:45 Pulse Ox 97 03/07/21 09:45 Intake & Output 03/06/21 03/07/21 03/07/21 18:59 06:59 18:59 Intake Total 1340 Output Total 200 500 Balance 1140 -500 Intake: Oral 1340 Output: Urine 200 500 Other: Voiding Method Toilet Toilet Diaper Diaper # Voids 1 - Exam GENERAL DESCRIPTION: Middle-aged female lying in bed in no distress RESPIRATORY SYSTEM: Unlabored breathing , decreased breath sounds at bases HEART: S1 S2 regular rate and rhythm , ABDOMEN: Soft , no tenderness EXTREMITIES: No edema feet - Labs CBC & Chem 7: 03/04/21 08:05 03/04/21 08:05 Labs: Abnormal Lab Results - Last 24 Hours (Table) 03/06/21 03/06/21 03/06/21 Range/Units 16:38 18:00 20:39 D-Dimer 0.76 H (<0.60) mg/L FEU POC Glucose (mg/dL) 345 H 357 H (75-99) mg/dL 03/07/21 03/07/21 03/07/21 Range/Units 04:41 07:10 11:51 D-Dimer 0.75 H (<0.60) mg/L FEU POC Glucose (mg/dL) 275 H 286 H (75-99) mg/dL Microbiology - Last 24 Hours (Table) 03/04/21 01:06 Blood Culture - Preliminary Blood No Growth after 72 hours Assessment and Plan Assessment: Patient presented to hospital with falls diagnosed with a CVA in this patient also have a fever and evidence of COVID-19 infection however the patient currently do not have significant respiratory symptoms and is not hypoxic, treatment is mostly supportive in the form of vitamin C Lovenox zinc and ascorbic acid no need for steroids Time with Patient: Less than 30
--- NOTE | 2021-03-07 20:41 | P.PN ---
Subjective Progress Note Date: 03/07/21 Principal diagnosis: Covid19 infection Patient is a 65-year-old female presented to hospital for evaluation of weakness And multiple falls patient has been diagnosed with CVA also noticed to be positive for COVID-19 however no significant respiratory symptoms or hypoxemia. On today's evaluation that is 03/07/2021 The patient remains to be afebrile, the patient is breathing comfortably on room air patient denies having chest pain very minimal cough no sputum production no nausea vomiting no abdominal pain no diarrhea and no further falls or worsening weakness Objective - Vital Signs Vital signs: Vital Signs Temp 98.1 F 03/07/21 14:00 Pulse 61 03/07/21 14:00 Resp 16 03/07/21 14:00 BP 186/95 03/07/21 14:00 Pulse Ox 95 03/07/21 14:00 Intake & Output 03/07/21 03/07/21 03/08/21 06:59 18:59 06:59 Output Total 500 Balance -500 Output: Urine 500 Other: Voiding Method Toilet Diaper # Voids 1 - Exam GENERAL DESCRIPTION: Middle-aged female lying in bed in no distress RESPIRATORY SYSTEM: Unlabored breathing , decreased breath sounds at bases HEART: S1 S2 regular rate and rhythm , ABDOMEN: Soft , no tenderness EXTREMITIES: No edema feet - Labs CBC & Chem 7: 03/04/21 08:05 03/04/21 08:05 Labs: Abnormal Lab Results - Last 24 Hours (Table) 03/06/21 03/07/21 03/07/21 Range/Units 20:39 04:41 07:10 D-Dimer 0.75 H (<0.60) mg/L FEU POC Glucose (mg/dL) 357 H 275 H (75-99) mg/dL 03/07/21 03/07/21 Range/Units 11:51 16:42 D-Dimer (<0.60) mg/L FEU POC Glucose (mg/dL) 286 H 278 H (75-99) mg/dL Microbiology - Last 24 Hours (Table) 03/04/21 01:06 Blood Culture - Preliminary Blood No Growth after 72 hours Assessment and Plan Assessment: Patient presented to hospital with falls diagnosed with a CVA in this patient also have a fever and evidence of COVID-19 infection however the patient currently do not have respiratory symptoms and is not hypoxic, treatment is mostly supportive in the form of vitamin C Lovenox zinc and ascorbic acid And there is no need for steroids on discharge or antibiotics
--- NOTE | 2021-03-08 21:32 | P.DS ---
Providers Date of admission: 03/01/21 23:49 Attending physician: Cyril Jama Consults: 03/01/21 23:50 Consult Physician Routine Consulting Provider: Gianna Boothe Consult Reason/Comments: Acute ischemic stroke Do you want consulting provider notified?: Yes 03/04/21 19:23 Consult Physician Urgent Consulting Provider: Harini Cortés Consult Reason/Comments: fever, covid infection Do you want consulting provider notified?: Yes 03/04/21 19:25 Consult Physician Routine Consulting Provider: Saurabh Mosher Consult Reason/Comments: stroke Do you want consulting provider notified?: Yes 03/06/21 10:49 Consult Physician Urgent Consulting Provider: Sumanth Champion Consult Reason/Comments: abn cxr Do you want consulting provider notified?: Yes Primary care physician: Physician Nonstaff Hospital Course: Final Diagnosis Acute stroke with left hemiparesis and facial droop, improved, secondary to right parietal lobe acute to subacute infarct Bilateral ICA stenosis, more on the left side 70% compared to the right side 50% (symptomatic site) Possible mild pneumonia secondary to Covid New diabetes mellitus type 2, uncontrolled with hgb A1c of 10.8 Fever, diarrhea most likely to mild bilateral Covid pneumonia, Cdif negative Dehydration with mild hypovolemic hyponatremia and elevated creatinine, improved Hypertension History of coronary artery disease status post stents 5. Obesity with BMI of 34.9 Discharge Disposition Patient reevaluated by PT/OT today and was found stable and safe for discharge home as her left side weakness has drastically improved. Patient is alert and oriented x4, appropriate and demonstrates understanding of plan of care and follow up needs. Patient does not have a PCP, and recommendations placed to establish care and for hospital follow up. Hospital Course This is a pleasant 65 year old female who presents to the with complaints of left sided weakness and facial droop. Patient did report having a sinus infection last week and took antibiotics for it. She has not been eating or drinking well for the past week and was found to be dehydrated on admission. Weakness in left upper and lower extremity started about 4 days ago which resulted in difficulty ambulating and resulted in 4 falls the last time of which she was unable to get back up. Patient has been having diarrhea daily. Past medical history significant for hypertension, coronary artery disease with stents x5 with cardiac arrest in the past. Labs on admission unremarkable besides mild thrombocytopenia at 114 and lymphopenia at 0.6, sodium 132, bun 29, creaitinine 1.1. Glucose elevated at 231. Troponin level negative x3. Ekg showed normal sinus rhythm with heart rate 77, no ST-T changes. Patient admitted to the hospital for rule out stroke and consulted to neurology. Since admission patient persisted with left hemiparesis and was resumed on plavix as she had run out at home prior to admission. On 03/06/2020 left sided hemiparesis improved and patient reported motor function and stress close to baseline. Additionally, diarrhea has persisted despite stopping colace and starting immodium. Stool was checked for CDIF and was negative. Blood cultures are negative. Urinalysis initial shows trace protein 2+ glucose, which cleared with repeat UA. Patient was having fevers with a T max of 102.3, however in the last 48 hours has been fever free. She has remained on room air, and blood pressure remains stable at 130/70s. Patient was consulted to pulmonary services after testing positive for covid on mar 04 however, she has remained on room air and lungs are clearing. She denies dyspnea with exertion and states overall she is feeling better. She was treated with IV decadron x2 doses and discharged on 8 days of oral decadron 6mg PO daily in addition to zinc, vitamin C, and vitamin D3. Discharged with levemir at bedtime and novolog 7 units with meals. Patient educated about meal planning, however, she may benefit from further diabetic education as this is a new diagnosis. Patient was found to be COVID positive as part of routine testing for inpatient rehab initial work up. Further lab testing reveals a hemoglobin A1C of 10.8. D-dimer elevated at 0.75, 0.76; LDH - 1174, CRP 3.7, Procalcitonin 0.08 consistent with Covid pneumonia without underlying bacterial infection. -CT of the brain on admission: No acute process, no hemorrhage. -CTA of the head and neck showing bilateral plaque formation of the carotid artery bifurcation approximately 50% stenosis right internal carotid artery and 70% stenosis left internal carotid artery. There is also stenosis of the right middle cerebral artery approximately 70%. Hyperdensity right parietal lobe white matter suggestive of infarct. -MRI of the brain showing right frontal infarct. -Echocardiogram shows an EF of 55-60%. There is trace mitral and trace tricuspid regurgitation. -Repeat chest xray on 03/06/2020: more infiltrate on the left side Patient was evaluated by neurology who is recommending aspirin 81 mg and plavix on discharge. Additionally vascular surgery is recommending outpatient catheter directed angiography of the right internal carotid artery stenosis. Neurology is recommending an event monitor which can be done outpatient. We recommend [facility] at [facility] in [place] to establish care and for placement of event monitor - however, pt did state she wanted a closer vegetables cook, not sure who performed her most previous stent. Patient will need referral for neurology; we did recommend either Dr. Armando Nathan or Dr. Vince Eisenberg in [place] for follow-up. 03/07/2021 Patient evaluated today sitting on edge of bed. She states her strength is almost back to baseline and she would like to be discharged home versus subacute rehab. PT/OT re-eval confirmed patient would be safe for him. Patient was given diabetic supplies in order to check blood sugar at home and advised to keep a log for follow up. She will need referrals to pulmonary, cardiology, neurology, vascular services. She is alert oriented x4, appropriate. Denies pain, denies chest pain, cough, shortness of breath. She denies nausea, vomiting, continues with diarrhea however she states slightly improving with questran. She denies blood in the stool. Lungs are clear, S1 and S2 auscultated, abdomen is soft and nontender. Mild left sided weakness remains, speech is clear and appropriate. Patient is stable for discharge home and is understanding of follow up needs. Temp 98.1, heart rate 61, blood pressure 127/68, 97% on room air. Home Medications Medication Instructions Recorded Confirmed Atorvastatin [Lipitor] 80 mg PO HS 03/01/21 03/01/21 Ezetimibe [Zetia] 10 mg PO HS 03/01/21 03/01/21 Losartan Potassium 50 mg PO HS 03/01/21 03/01/21 Metoprolol Succinate (ER) [Toprol 100 mg PO HS 03/01/21 03/01/21 XL] diphenhydrAMINE [Benadryl] 25 mg PO HS 03/01/21 03/01/21 Previous Rx's Medication Instructions Recorded Acetaminophen Tab [Tylenol] 325 mg PO Q6HR PRN tab 03/06/21 Ascorbic Acid [Vitamin C] 500 mg PO BID #60 tab 03/06/21 Cholecalciferol [Vitamin D3 (25 50 mcg PO DAILY #60 tablet 03/06/21 Mcg = 1000 Iu)] Cholestyramine (with Sugar) 4 gm PO BID@1000,1800 #6 packet 03/06/21 [Questran Packet] Clopidogrel [Plavix] 75 mg PO DAILY #30 tab 03/06/21 Famotidine [Pepcid] 20 mg PO BID #60 tab 03/06/21 INSULIN ASPART (NovoLOG) [NovoLOG 7 unit SQ AC-TID #10 ml 03/06/21 (formulary)] Insulin Detemir (Levemir) [Levemir] 15 unit SQ HS #10 ml 03/06/21 Zinc Sulfate [Orazinc] 220 mg PO DAILY #60 cap 03/06/21 Syringe-Needle,Insulin,0.5 ml 1 syr SQ DIRECTED #120 each 03/07/21 [Insulin Syringe 29G 1/2" 0.5ML] dexAMETHasone ORAL [Hexadrol] See Taper PO DAILY #8 tab 03/07/21 Aspirin 81 mg PO DAILY #30 tab 03/08/21 Thank you for allowing us to participate in the care of this patient. Patient Condition at Discharge: Fair Plan - Discharge Summary Discharge Rx Participant: No New Discharge Prescriptions: New Clopidogrel [Plavix] 75 mg PO DAILY #30 tab Cholestyramine (with Sugar) [Questran Packet] 4 gm PO BID@1000,1800 #6 packet Ascorbic Acid [Vitamin C] 500 mg PO BID #60 tab Cholecalciferol [Vitamin D3 (25 Mcg = 1000 Iu)] 50 mcg PO DAILY #60 tablet dexAMETHasone ORAL [Hexadrol] See Taper PO DAILY #8 tab Insulin Detemir (Levemir) [Levemir] 15 unit SQ HS #10 ml INSULIN ASPART (NovoLOG) [NovoLOG (formulary)] 7 unit SQ AC-TID #10 ml Zinc Sulfate [Orazinc] 220 mg PO DAILY #60 cap Famotidine [Pepcid] 20 mg PO BID #60 tab Acetaminophen Tab [Tylenol] 325 mg PO Q6HR PRN tab PRN Reason: Fever And/ Or Pain Syringe-Needle,Insulin,0.5 ml [Insulin Syringe 29G 1/2" 0.5ML] 1 syr SQ DIRECTED #120 each Continue diphenhydrAMINE [Benadryl] 25 mg PO HS Metoprolol Succinate (ER) [Toprol XL] 100 mg PO HS Losartan Potassium 50 mg PO HS Ezetimibe [Zetia] 10 mg PO HS Atorvastatin [Lipitor] 80 mg PO HS Discontinued Amoxic-Pot Clav 875-125Mg [Augmentin 875-125] 1 tab PO Q12HR Discharge Medication List Atorvastatin [Lipitor] 80 mg PO HS 03/01/21 [History] Ezetimibe [Zetia] 10 mg PO HS 03/01/21 [History] Losartan Potassium 50 mg PO HS 03/01/21 [History] Metoprolol Succinate (ER) [Toprol XL] 100 mg PO HS 03/01/21 [History] diphenhydrAMINE [Benadryl] 25 mg PO HS 03/01/21 [History] Acetaminophen Tab [Tylenol] 325 mg PO Q6HR PRN tab 03/06/21 [Rx] Ascorbic Acid [Vitamin C] 500 mg PO BID #60 tab 03/06/21 [Rx] Cholecalciferol [Vitamin D3 (25 Mcg = 1000 Iu)] 50 mcg PO DAILY #60 tablet 03/06/21 [Rx] Cholestyramine (with Sugar) [Questran Packet] 4 gm PO BID@1000,1800 #6 packet 03/06/21 [Rx] Clopidogrel [Plavix] 75 mg PO DAILY #30 tab 03/06/21 [Rx] Famotidine [Pepcid] 20 mg PO BID #60 tab 03/06/21 [Rx] INSULIN ASPART (NovoLOG) [NovoLOG (formulary)] 7 unit SQ AC-TID #10 ml 03/06/21 [Rx] Insulin Detemir (Levemir) [Levemir] 15 unit SQ HS #10 ml 03/06/21 [Rx] Zinc Sulfate [Orazinc] 220 mg PO DAILY #60 cap 03/06/21 [Rx] Syringe-Needle,Insulin,0.5 ml [Insulin Syringe 29G 1/2" 0.5ML] 1 syr SQ DIRECTED #120 each 03/07/21 [Rx] dexAMETHasone ORAL [Hexadrol] See Taper PO DAILY #8 tab 03/07/21 [Rx] Follow up Appointment(s)/Referral(s): Sumanth Champion MD [STAFF PHYSICIAN] - 04/10/21 1:30 pm [facility] [NON-STAFF] - Yakelin Nathan MD [REFERRING] - 10 Days (Neurologist. Please call after see primary care physcian for referal) Michael Hernandez DO [STAFF PHYSICIAN] - 03/20/21 3:30 pm (Vascular surgery, recommended catheter directed angiography of the carotid arteries as an outpatient ) Nonstaff,Physician [Primary Care Provider] - 1-2 days Vince Eisenberg MD [STAFF PHYSICIAN] - 10 Days (Neurologist, after you see primar care physcian with referral) Harini Cortés MD [STAFF PHYSICIAN] - 03/19/21 1:15 pm (Infectious disease d octor) Patient Instructions/Handouts: Coronavirus Disease 2019 (COVID-19), Type 2 Diabetes Management for Adults (DC) Activity/Diet/Wound Care/Special Instructions: [facility] are in [place] and accepting new patients. Please call: to make an appt. Location: [address] [place], [place] [address] [address] Diabetic supplies ordered through [facility] Discharge/Stand Alone Forms: Who Do I Call?, Help In The Home Discharge Disposition: HOME WITH HOME HEALTH SERVICES
== END 2021-03-07 18:18 | disposition home health service (06) | DRG 64 ==
LOC: EC 22:03 → 3SCARD 23:49 → 4SSUR 03-06 17:09
PROVIDERS: ADMIT Hospitalist; ATTEND Hospitalist
DX: I63.81 Other cerebral infarction due to occlusion or stenosis of small artery (principal); U07.1 COVID-19; J12.82 Pneumonia due to coronavirus disease 2019; G81.94 Hemiplegia, unspecified affecting left nondominant side; E87.1 Hypo-osmolality and hyponatremia; A08.39 Other viral enteritis; I65.23 Occlusion and stenosis of bilateral carotid arteries; I66.01 Occlusion and stenosis of right middle cerebral artery; I11.9 Hypertensive heart disease without heart failure; D69.6 Thrombocytopenia, unspecified; D72.810 Lymphocytopenia; E11.65 Type 2 diabetes mellitus with hyperglycemia; E66.01 Morbid (severe) obesity due to excess calories; E78.5 Hyperlipidemia, unspecified; Z86.74 Personal history of sudden cardiac arrest; E86.0 Dehydration; E86.1 Hypovolemia; Z87.891 Personal history of nicotine dependence; Z68.34 Body mass index [BMI] 34.0-34.9, adult; I25.10 Atherosclerotic heart disease of native coronary artery without angina pectoris; I25.2 Old myocardial infarction; R29.6 Repeated falls; Z91.81 History of falling; R29.705 NIHSS score 5; R29.810 Facial weakness; R27.0 Ataxia, unspecified; Z79.02 Long term (current) use of antithrombotics/antiplatelets; Z79.82 Long term (current) use of aspirin; Z79.899 Other long term (current) drug therapy; Z95.5 Presence of coronary angioplasty implant and graft; Z98.51 Tubal ligation status; Z90.49 Acquired absence of other specified parts of digestive tract; Z60.2 Problems related to living alone; Z88.2 Allergy status to sulfonamides
CPT/HCPCS: 36415; 70450; 70496; 70498; 70551; 71045; 71046; 80048; 80053; 80061; 81001; 81003; 83036; 83615; 83735; 84145; 84484; 85025; 85379; 85610; 85730; 86140; 87040; 87324; 87635; 93005; 93306; 93880; 99285